=== PATIENT | male | born 1985 | race American Indian/Alaskan Native ===

== ENCOUNTER 2017-05-15 20:49 | Emergency (ER) | payer OTHER ==
[2017-05-15 20:49] VITALS: BMI 24.4
[2017-05-15 21:09] VITALS: BP 128/63; PULSE 71; RESP 18; TEMP 97.8; O2SAT 100
[2017-05-15] MEDS ORDERED: Alum-Mag Hydrox-Simethicone Susp (30 mL) PO STA (21:18)
[2017-05-15] MEDS ORDERED: Sodium Chloride 0.9% 1,000 ML IV STA (21:18)
--- NOTE | 2017-05-15 21:25 | ED PDOC ---
HPI: Abdomen Time Seen by Provider: 05/15/17 21:09 Chief Complaint (Nursing): GI Problem Chief Complaint (Provider): Epigastric and RUQ Pain History Per: Patient History/Exam Limitations: no limitations Outside of [place] travel?: No Current Symptoms Are (Timing): Still Present Location Of Pain/Discomfort: RUQ, Epigastric Quality Of Discomfort: "Pain" Associated Symptoms: Vomiting Additional Complaint(s): Chapincito Tang, a 31 year old male, with a past medical history of gastritis presents to the ED complaining of epigastric and right upper quadrant pain he has been experiencing for a few hours. The patient also states that he has had 7 episodes of vomiting within those few hours. He states that he has been taking proton pump inhibitors. Past Medical History Reviewed: Historical Data, Nursing Documentation, Vital Signs Vital Signs: Last Vital Signs Temp 97.8 F 05/15/17 21:07 Pulse 71 05/15/17 21:07 Resp 18 05/15/17 21:07 BP 128/63 05/15/17 21:07 Pulse Ox 100 05/15/17 21:29 - Medical History PMH: Arthritis, Back Problems (Spinal Arthritis), Gastritis - Surgical History Surgical History: No Surg Hx - Family History Family History: States: Unknown Family Hx - Immunization History Hx Tetanus Toxoid Vaccination: No Hx Influenza Vaccination: No Hx Pneumococcal Vaccination: No - Home Medications Home Medications: Ambulatory Orders Medication Instructions Recorded Pantoprazole Sodium [Protonix] 40 mg PO DAILY #30 ect 01/13/15 Famotidine [Pepcid] 20 mg PO BID #60 tab 03/23/17 Famotidine [Pepcid] 20 mg PO BID #28 tab 05/15/17 - Allergies Allergies/Adverse Reactions: Allergies Allergy/AdvReac Type Severity Reaction Status Date / Time No Known Allergies Allergy Verified 03/23/17 16:23 Review of Systems Gastrointestinal: Positive for: Vomiting (x7 episodes), Abdominal Pain ( Epigastric and right upper quadrant pain) Physical Exam - Reviewed Nursing Documentation Reviewed: Yes Vital Signs Reviewed: Yes - Physical Exam Appears: Positive for: Non-toxic, No Acute Distress Head Exam: Positive for: ATRAUMATIC, NORMAL INSPECTION, NORMOCEPHALIC Skin: Positive for: Normal Color, Warm, Dry. Negative for: Rash Eye Exam: Positive for: Normal appearance, EOMI, PERRL. Negative for: Nystagmus ENT: Positive for: Normal ENT Inspection. Negative for: Nasal Congestion, Pharyngeal Erythema Neck: Positive for: Normal, Painless ROM, Supple Cardiovascular/Chest: Positive for: Regular Rate, Rhythm, Chest Non Tender. Negative for: Tachycardia Respiratory: Positive for: Normal Breath Sounds. Negative for: Rales, Rhonchi, Wheezing, Respiratory Distress Gastrointestinal/Abdominal: Positive for: Normal Exam (Epigastric and Right upper quadrant pain.), Bowel Sounds, Soft. Negative for: Guarding, Rebound Neurologic/Psych: Positive for: Alert, Oriented, Gait - Laboratory Results Result Diagrams: 05/15/17 21:26 05/15/17 21:38 - ECG O2 Sat by Pulse Oximetry: 100 Medical Decision Making Medical Decision Makin Initial Impression: 31 year old male presenting with epigastric and right upper quadrant pain Initial Plan: * CMP * Lipase * CBC * Pepcid 20mg IV * NS 1000mls IV 1000mls/hr * Maalox 30ml PO * US Abd Limited * Reevaluation Labs normal. US normal. Scribe Attestation Documented by Raquel Higginbotham acting as a scribe for Kezia Trujillo PA-C. Scribe Attestation All medical record entries made by the Scribe were at my direction and personally dictated by me. I have reviewed the chart and agree that the record accurately reflects my personal performance of the history, physical exam, medical decision making, and the department course for this patient. I have also personally directed, reviewed, and agree with the discharge instructions and disposition. Disposition - Clinical Impression Clinical Impression: Gastritis - Patient ED Disposition Is Patient to be Admitted: No Counseled Patient/Family Regarding: Diagnosis, Need For Followup, Rx Given - Disposition Disposition: Routine/Home Disposition Time: 23:15 Condition: GOOD Prescriptions: Famotidine [Pepcid] 20 mg PO BID #28 tab Instructions: Gastritis (ED) Forms: [employer] (Guinean)
[2017-05-15] MEDS ORDERED: Alum-Mag Hydrox-Simethicone Susp (30 mL) ONE (21:33)
[2017-05-15 21:38] LABS: BASO # 0.1 K/uL (0.0-0.2); BASO % 0.5 % (0.0-2.0); EOS % 0.1 % (0.0-4.0); HEMATOCRIT 47.9 % (35.0-51.0); LYMPH # 0.5 K/uL (1.0-4.3); LYMPH % 4.4 % (20.0-40.0); MEAN CELL VOLUME 86.1 fl (80.0-94.0); MEAN CORPUSCULAR HEMOGLOBIN 28.4 pg (27.0-31.0); MEAN PLATELET VOLUME 8.3 fl (7.2-11.7); MONO # 0.3 K/uL (0.0-0.8); MONO % 2.8 % (0.0-10.0); NEUT % 92.2 % (50.0-75.0); PLATELET COUNT 270 K/uL (130-400); RED CELL DISTRIBUTION WIDTH 13.7 % (11.5-14.5); WHITE BLOOD COUNT 10.9 K/uL (4.8-10.8)
[2017-05-15 21:48] LABS: ALB/GLOB RATIO 1.4 (1.0-2.1); ALKALINE PHOSPHATASE 54 U/L (38-126); ALT/SGPT 44 U/L (21-72); AST/SGOT 30 U/L (17-59); BILIRUBIN,TOTAL 1.1 mg/dl (0.2-1.3); BLOOD UREA NITROGEN 27 mg/dl (9-20); CALCIUM 10.9 mg/dL (8.4-10.2); CARBON DIOXIDE 25 mmol/L (22-30); CHLORIDE 104 mmol/L (98-107); GFR AFRICAN-AMERICAN > 60; GLUCOSE,RANDOM 128 mg/dL (75-110); LIPASE 44 U/L (23-300); SODIUM 143 mmol/l (132-148); TOTAL PROTEIN 9.1 G/DL (6.3-8.2)
[2017-05-15 22:49] LABS: BASOPHIL 1 % (0-2); NEUTROPHIL 90 % (42-75); TOTAL CELLS COUNTED 100
--- NOTE | 2017-05-15 23:02 | US ---
EXAM: US Abdomen Limited, Right Upper Quadrant CLINICAL HISTORY: 31 years old, male; Pain; Abdominal pain; Epigastric; Additional info: Ruq pain TECHNIQUE: Real-time ultrasound of the right upper quadrant with image documentation. COMPARISON: No relevant prior studies available. FINDINGS: Liver: Unremarkable in echogenicity and size measuring 16 cm in longitudinal dimension. No intrahepatic bile duct dilation. Gallbladder: No acute findings. No gallstones. Common bile duct: No stones. No dilation, measuring 3 mm. Pancreas: Visualization of the pancreas is limited by overlying bowel gas. Right kidney: No acute findings. No obstructing stones. No solid mass. No hydronephrosis. IMPRESSION: Unremarkable sonographic evaluation of the right upper quadrant, as detailed above. Limited evaluation of the pancreas, secondary to overlying bowel gas.
== END 2017-05-16 00:03 | disposition home or self-care (01) ==
LOC: H.ER 20:49
DX: K29.70 Gastritis, unspecified, without bleeding (principal)
CPT/HCPCS: 76705; 80053; 83690; 85025; 96374; 96375; 99284; J2270; J2405; J7040

== ENCOUNTER 2017-07-09 00:33 | Inpatient (IN) | payer OTHER ==
[2017-07-09 00:34] VITALS: BMI 24.4
[2017-07-09] MEDS ORDERED: Sodium Chloride 0.9% 1,000 ML IV STA ×2 (01:01→01:36)
--- NOTE | 2017-07-09 01:04 | ED PDOC ---
HPI: Abdomen Time Seen by Provider: 07/09/17 00:43 Chief Complaint (Nursing): Abdominal Pain Chief Complaint (Provider): abdominal pain History Per: Patient History/Exam Limitations: no limitations Onset/Duration Of Symptoms: Hrs Current Symptoms Are (Timing): Still Present Location Of Pain/Discomfort: Epigastric Quality Of Discomfort: Burning, "Pain" Associated Symptoms: Nausea, Vomiting Additional History Per: Patient Additional Complaint(s): 31 y/o male history of gastritis presents with epigastric abdominal pain x 12 hours. Associated nausea/vomiting. Patient being followed by a [employer], states he takes Pantoprazole but ran out 2 days ago. Denies fever, chest pain, shortness of breath, palpitations, changes in bowel movements, urinary symptoms. Past Medical History Reviewed: Historical Data, Nursing Documentation, Vital Signs Vital Signs: Last Vital Signs Temp 97.8 F 07/09/17 18:44 Pulse 89 07/09/17 18:44 Resp 18 07/09/17 18:44 BP 124/73 07/09/17 18:44 Pulse Ox 97 07/09/17 18:44 - Medical History PMH: Arthritis, Back Problems (Spinal Arthritis), Gastritis - Surgical History Surgical History: No Surg Hx - Family History Family History: States: Unknown Family Hx - Social History Current smoker - smoking cessation education provided: No Alcohol: None Drugs: Cannabis (daily) - Immunization History Hx Tetanus Toxoid Vaccination: No Hx Influenza Vaccination: No Hx Pneumococcal Vaccination: No - Home Medications Home Medications: Ambulatory Orders Medication Instructions Recorded Pantoprazole Sodium [Protonix] 40 mg PO DAILY #30 ect 01/13/15 Ondansetron ODT [Zofran ODT] 4 mg PO DAILY 07/09/17 - Allergies Allergies/Adverse Reactions: Allergies Allergy/AdvReac Type Severity Reaction Status Date / Time No Known Allergies Allergy Verified 03/23/17 16:23 Review of Systems ROS Statement: Except As Marked, All Systems Reviewed And Found Negative Gastrointestinal: Positive for: Nausea, Vomiting, Abdominal Pain Physical Exam - Reviewed Nursing Documentation Reviewed: Yes Vital Signs Reviewed: Yes - Physical Exam Appears: Positive for: Well, Non-toxic, No Acute Distress Head Exam: Positive for: ATRAUMATIC, NORMAL INSPECTION, NORMOCEPHALIC Skin: Positive for: Normal Color Eye Exam: Positive for: Normal appearance ENT: Positive for: Normal ENT Inspection Cardiovascular/Chest: Positive for: Regular Rate, Rhythm Respiratory: Positive for: Normal Breath Sounds Gastrointestinal/Abdominal: Positive for: Bowel Sounds, Soft, Tenderness ( epigastric) Back: Positive for: Normal Inspection Extremity: Positive for: Normal ROM Neurologic/Psych: Positive for: Alert, Oriented - Laboratory Results Result Diagrams: 07/09/17 01:22 07/09/17 01:22 - ECG O2 Sat by Pulse Oximetry: 100 - Progress ED Course And Treament: labs, IV fluids, IV pepcid, IV zofran On re-eval, patient still with pain; GI cocktail ordered On re-eval, patient still with pain, IV reglan ordered On re-eval, patient still with pain, IV phenergan, IV benadryl, IV toradol ordered 4:40 Patient notes little to no improvement of pain. Patient advised will need to order CT abd/pelvis to rule out acute process. Disposition - Clinical Impression Clinical Impression: Abdominal pain - Patient ED Disposition Is Patient to be Admitted: Transfer of Care - Disposition Disposition: Transfer of Care Disposition Time: 06:00 Condition: FAIR Patient Signed Over To: Rod Tellez Handoff Comments: pending CT
[2017-07-09 01:25] LABS: BASO % 0.3 % (0.0-2.0); EOS % 0.1 % (0.0-4.0); HEMATOCRIT 44.6 % (35.0-51.0); LYMPH # 0.4 K/uL (1.0-4.3); LYMPH % 5.2 % (20.0-40.0); MEAN CELL VOLUME 86.8 fl (80.0-94.0); MEAN CORPUSCULAR HEMOGLOBIN 28.6 pg (27.0-31.0); MEAN PLATELET VOLUME 8.2 fl (7.2-11.7); MONO # 0.2 K/uL (0.0-0.8); NEUT # 7.6 K/uL (1.8-7.0); NEUT % 92.4 % (50.0-75.0); PLATELET COUNT 245 K/uL (130-400); RED CELL DISTRIBUTION WIDTH 14.1 % (11.5-14.5); WHITE BLOOD COUNT 8.3 K/uL (4.8-10.8)
[2017-07-09 01:33] LABS: ALB/GLOB RATIO 1.5 (1.0-2.1); ALKALINE PHOSPHATASE 44 U/L (38-126); ALT/SGPT 43 U/L (21-72); AST/SGOT 27 U/L (17-59); BLOOD UREA NITROGEN 26 mg/dl (9-20); CALCIUM 10.7 mg/dL (8.4-10.2); CARBON DIOXIDE 23 mmol/L (22-30); CHLORIDE 105 mmol/L (98-107); GFR AFRICAN-AMERICAN > 60; GLUCOSE,RANDOM 126 mg/dL (75-110); LIPASE 49 U/L (23-300); POTASSIUM 4.4 MMOL/L (3.6-5.0); SODIUM 144 mmol/l (132-148); TOTAL PROTEIN 8.4 G/DL (6.3-8.2)
[2017-07-09] MEDS ORDERED: Atrop/Hyos/Scop/PhenoB Elixir PO ONE (02:03)
[2017-07-09] MEDS ORDERED: Alum-Mag Hydrox-Simethicone Susp (30 mL) PO ONE (02:03)
[2017-07-09] MEDS ORDERED: Belladonna-Phenobarbital PO STA (02:05)
[2017-07-09 02:52] LABS: NEUTROPHIL 94 % (42-75); PLATELET CLUMPS PRESENT; TOTAL CELLS COUNTED 100
[2017-07-09] MEDS ORDERED: DiphenhydrAMINE 50 mg/ml Inj IVP STA (03:32)
[2017-07-09] MEDS ORDERED: DiphenhydrAMINE 50 mg/ml Inj ONE (03:36)
[2017-07-09] MEDS ORDERED: Iohexol 240 (50 ml) PO ONE (04:39)
[2017-07-09] MEDS ORDERED: Iohexol 240 (50 ml) ONE (04:40)
--- NOTE | 2017-07-09 05:48 | ED PDOC ---
- Laboratory Results Result Diagrams: 07/09/17 01:22 07/09/17 01:22 - ECG O2 Sat by Pulse Oximetry: 100 Medical Decision Making Medical Decision Makin Receiving sign out: Patient signed out to me by JUANI Vines pending CT 0700 Patient signed out to Dr. Partida at pending CT. Scribe Attestation: Documented by Alma Red acting as a scribe for Rod Tellez MD. Scribe Attestation: All medical record entries made by the Scribe were at my direction and personally dictated by me. I have reviewed the chart and agree that the record accurately reflects my personal performance of the history, physical exam, medical decision making, and the department course for this patient. I have also personally directed, reviewed, and agree with the discharge instructions and disposition. Disposition Counseled Patient/Family Regarding: Studies Performed, Diagnosis - Clinical Impression Clinical Impression: Abdominal pain - POA Present On Arrival: None - Disposition Disposition: Transfer of Care Disposition Time: 07:00 Condition: FAIR Forms: [employer] (Yoruba) Patient Signed Over To: Michael Partida (at 0700) Handoff Comments: Pending CT
[2017-07-09] MEDS ORDERED: Iohexol 300 100 ML IJ ONE (06:35)
[2017-07-09] MEDS ORDERED: Sodium Chloride 0.9% 50 ML IV ONE (06:35)
--- NOTE | 2017-07-09 07:38 | ED PDOC ---
- Laboratory Results Result Diagrams: 07/09/17 01:22 07/09/17 01:22 Interpretation Of Abn Labs: 26 bun - ECG O2 Sat by Pulse Oximetry: 100 (RA) Pulse Ox Interpretation: Normal - CT Scan/US ct Other Rad Studies (CT/US): Read By Radiologist Other Rad Interpretation: Jejunal-Jejunal intusseception 5cm LUQ - Progress ED Course And Treament: 805: Feeling slightly better. AAOx3. Surgery paged. 820: Spoke with surgery resident. Will admit under surgery Dr. Greene service. Pt. stable. No additional tx at this time. Medical Decision Making Medical Decision Makin:00 Patient signed over to me, Michael Partida MD from Rod Tellez MD pending CT. Scribe Attestation: Documented by Bonnie Llanos, acting as a scribe for Michael Partida MD. Provider Scribe Attestation: All medical record entries made by the Scribe were at my direction and personally dictated by me. I have reviewed the chart and agree that the record accurately reflects my personal performance of the history, physical exam, medical decision making, and the department course for this patient. I have also personally directed, reviewed, and agree with the discharge instructions and disposition. Disposition - Clinical Impression Clinical Impression: Intussusception - POA Present On Arrival: None - Disposition Disposition: Admitted as In-Patient Disposition Time: 08:21 Condition: FAIR
--- NOTE | 2017-07-09 07:50 | CT ---
EXAM: CT Abdomen and Pelvis With Intravenous Contrast EXAM DATE/TIME: 07/09/2017 4:39 AM CLINICAL HISTORY: 31 years old, male; Pain and signs and symptoms; Vomiting; Abdominal pain; Localized; Upper; Additional info: Upper abdominal pain, vomiting TECHNIQUE: Axial computed tomography images of the abdomen and pelvis with intravenous contrast. All CT scans at this facility use one or more dose reduction techniques, viz.: automated exposure control; ma/kV adjustment per patient size (including targeted exams where dose is matched to indication; i.e. head); or iterative reconstruction technique. Coronal and sagittal reformatted images were created and reviewed. CONTRAST: 95 mL of [id number] administered intravenously. COMPARISON: No relevant prior studies available. FINDINGS: Lower thorax: No acute findings. ABDOMEN: Liver: Unremarkable. No mass. Gallbladder and bile ducts: Unremarkable. No calcified stones. No ductal dilation. Pancreas: Unremarkable. No mass. No ductal dilation. Spleen: Unremarkable. No splenomegaly. Adrenals: Unremarkable. No mass. Kidneys and ureters: Unremarkable. No solid mass. No hydronephrosis. Stomach and bowel: Telescoping of a 5 cm segments of jejunum in the left upper abdomen (images 25-27 series 2, 49-54 series 3, coronal 41-46, sagittal 102-120). Upper limits of some segments of jejunum in the region, best of normal caliber. Appendix: Normal. PELVIS: Bladder: Unremarkable. No mass. Reproductive: Unremarkable as visualized. ABDOMEN and PELVIS: Intraperitoneal space: Small amount of free fluid in the dependent pelvis. No free air. Bones/joints: No acute fracture. Soft tissues: Unremarkable. Vasculature: Unremarkable. No abdominal aortic aneurysm. Lymph nodes: No enlarged lymph nodes. IMPRESSION: Jejunal-jejunal intussusception in left upper abdomen, approximately 5 cm in length. No sign of obstruction at this time.
--- NOTE | 2017-07-09 08:45 | CP.PCM.HP ---
History of Present Illness - History of Present Illness History of Present Illness: 31M w/ PMHx of gastritis presented to ED w/ complaints of abdominal pain. Patient states pain began yesterday around 8PM while he was eating dinner. At this time patient rated pain as a 9/10. Reports having multiple bouts of bilious emesis (x7). States he has not experienced this type of pain before. Currently patient rates pain as 7/10, patient reports nausea. Last BM was yesterday night, patient reports passing flatus today. Denies fever but reports chills. PMHx: gastritis PSurgHx: none Allergies: NKDA Soc Hx: Occasional marijuana use. Present on Admission - Present on Admission Any Indicators Present on Admission: No Review of Systems - Review of Systems Review of Systems: 12 pt ROS carried out, unremarkable, except as stated in HPI Past Patient History - Past Social History Alcohol: None Drugs: Cannabis (daily) - MUSCULOSKELETAL/RHEUMATOLOGICAL Hx Musculoskeletal Disorders: Yes - GASTROINTESTINAL Hx Gastritis: Yes - PSYCHIATRIC Hx Substance Use: Yes - SURGICAL HISTORY Hx Surgeries: No - ANESTHESIA Hx Anesthesia: No Meds Allergies/Adverse Reactions: Allergies Allergy/AdvReac Type Severity Reaction Status Date / Time No Known Allergies Allergy Verified 03/23/17 16:23 Physical Exam - Constitutional Appears: No Acute Distress - Head Exam Head Exam: NORMOCEPHALIC - Eye Exam Eye Exam: Normal appearance - ENT Exam ENT Exam: Mucous Membranes Moist - Respiratory Exam Respiratory Exam: NORMAL BREATHING PATTERN - Cardiovascular Exam Cardiovascular Exam: +S1, +S2 - GI/Abdominal Exam GI & Abdominal Exam: Guarding, Tenderness. absent: Distended, Firm, Hernia - Neurological Exam Neurological exam: Alert, Oriented x3 - Psychiatric Exam Psychiatric exam: Normal Mood - Skin Skin Exam: Dry, Intact, Normal Color, Warm Results - Vital Signs Recent Vital Signs: Last Vital Signs Temp 99.8 F H 07/09/17 08:19 Pulse 81 07/09/17 08:19 Resp 18 07/09/17 08:19 BP 130/72 07/09/17 08:19 Pulse Ox 100 07/09/17 08:21 - Labs Result Diagrams: 07/09/17 01:22 07/09/17 01:22 Labs: Laboratory Results - last 24 hr 07/09/17 07/09/17 01:22 01:22 WBC 8.3 RBC 5.13 Hgb 14.7 Hct 44.6 MCV 86.8 MCH 28.6 MCHC 33.0 RDW 14.1 Plt Count 245 MPV 8.2 Neut % (Auto) 92.4 H Lymph % (Auto) 5.2 L [place] % (Auto) 2.0 Eos % (Auto) 0.1 Baso % (Auto) 0.3 Neut # 7.6 H Lymph # 0.4 L [place] # 0.2 Eos # 0.0 Baso # 0.0 Neutrophils % (Manual) 94 H Lymphocytes % (Manual) 5 L Monocytes % (Manual) 1 Platelet Estimate Normal Plt Clumps, EDTA Present Anisocytosis (manual) Slight Sodium 144 Potassium 4.4 Chloride 105 Carbon Dioxide 23 Anion Gap 20 BUN 26 H Creatinine 1.0 Est GFR ( Amer) > 60 Est GFR (Non-Af Amer) > 60 Random Glucose 126 H Calcium 10.7 H Total Bilirubin 1.0 AST 27 ALT 43 Alkaline Phosphatase 44 Total Protein 8.4 H Albumin 5.1 H Globulin 3.3 Albumin/Globulin Ratio 1.5 Lipase 49 Assessment & Plan - Assessment and Plan (Free Text) Assessment: 31M w/ intussusception -OR this afternoon -Consent in chart -Type & Screen -NPO -IVF -Anti-emetics/Analgesics -DVT/GI ppx -D/w Dr. Jc Garcia PGY-2
[2017-07-09] MEDS ORDERED: HYDROmorphone 0.5 mg/0.5 ml ISec IVP PRN ×3 (09:02→17:45)
[2017-07-09] MEDS: Lactated Ringer's 1,000 ML IV SCH ×2 (09:47→19:19)
[2017-07-09 10:33] LABS: PARTIAL THROMBOPLASTIN TIME 27.5 Seconds (25.6-37.1)
[2017-07-09] MEDS ORDERED: Propofol 10 mg/ml Inj (20 ML) ONE ×2 (11:18→14:05)
[2017-07-09] MEDS ORDERED: Succinylcholine 200 mg/10 ml Inj IV ONE (11:18)
[2017-07-09] MEDS ORDERED: ePHEDrine 50 mg/ml Inj ONE (11:18)
[2017-07-09] MEDS ORDERED: Rocuronium 10 mg/ml (5 ml) ONE (11:18)
[2017-07-09] MEDS ORDERED: Lidocaine 4% (Laryng-O-Jet) Kit MM ONE (11:18)
[2017-07-09] MEDS ORDERED: Bupivacaine 0.5% Inj(30mL) ONE (12:31)
[2017-07-09] MEDS ORDERED: Lidocaine 1% Inj (20ml) ONE (12:31)
[2017-07-09] MEDS ORDERED: Midazolam 2 MG/2 ML VIAL ONE (12:57)
[2017-07-09] MEDS ORDERED: Lactated Ringer's 1,000 ML IV ONE ×2 (13:04→14:30)
[2017-07-09] MEDS ORDERED: cefTRIAXone (Rocephin) 1 gm Inj ONE (13:15)
[2017-07-09] MEDS ORDERED: Dexamethasone 4 mg/1 ml ONE (13:26)
[2017-07-09] MEDS ORDERED: Neostigmine Methylsulfate 3mg/3ml Syringe IV ONE (14:01)
--- NOTE | 2017-07-09 14:42 | PCM.SURG1 ---
Surgeon's Initial Post Op Note - Surgeon's Notes Surgeon: Dr. Greene [employer] Instructor: Dr. Hooper PGY-3, Dr. Garcia PGY-2 Type of Anesthesia: General Endo Pre-Operative Diagnosis: intussusception Operative Findings: see operative report Post-Operative Diagnosis: see operative report Operation Performed: diagnostic laparoscopy converted to exploratory laparotomy. appendectomy. insertion of rendon catheter Specimen/Specimens Removed: appendix Estimated Blood Loss: EBL {In ML}: 15 Blood Products Given: N/A Drains Used: No Drains Post-Op Condition: Good Date of Surgery/Procedure: 07/09/17 Time of Surgery/Procedure: 14:43
[2017-07-09] MEDS ORDERED: Lactated Ringer's 1,000 ML IV SCH (14:45)
[2017-07-09] MEDS: HYDROmorphone 0.5 mg/0.5 ml ISec IVP PRN ×4 (15:00→15:48)
[2017-07-09] MEDS ORDERED: HYDROmorphone 0.5 mg/0.5 ml ISec IVP SCH (16:00)
[2017-07-10] MEDS: Lactated Ringer's 1,000 ML IV SCH (01:41)
[2017-07-10 06:31] LABS: BASO % 0.1 % (0.0-2.0); HEMATOCRIT 37.8 % (35.0-51.0); LYMPH # 1.4 K/uL (1.0-4.3); LYMPH % 10.1 % (20.0-40.0); MEAN CORPUSCULAR HEMOGLOBIN 28.5 pg (27.0-31.0); MEAN CORPUSCULAR HGB CONC 32.8 g/dL (33.0-37.0); MEAN PLATELET VOLUME 8.1 fl (7.2-11.7); MONO # 1.1 K/uL (0.0-0.8); MONO % 8.2 % (0.0-10.0); NEUT # 11.4 K/uL (1.8-7.0); NEUT % 81.6 % (50.0-75.0); RED CELL DISTRIBUTION WIDTH 14.1 % (11.5-14.5)
[2017-07-10 06:35] LABS: ALB/GLOB RATIO 1.4 (1.0-2.1); ALKALINE PHOSPHATASE 31 U/L (38-126); ALT/SGPT 34 U/L (21-72); AST/SGOT 26 U/L (17-59); BILIRUBIN,TOTAL 1.1 mg/dl (0.2-1.3); BLOOD UREA NITROGEN 21 mg/dl (9-20); CALCIUM 9.5 mg/dL (8.4-10.2); CARBON DIOXIDE 26 mmol/L (22-30); CHLORIDE 104 mmol/L (98-107); GFR AFRICAN-AMERICAN > 60; GLUCOSE,RANDOM 92 mg/dL (75-110); POTASSIUM 4.2 MMOL/L (3.6-5.0); SODIUM 140 mmol/l (132-148); TOTAL PROTEIN 6.3 G/DL (6.3-8.2)
[2017-07-10] MEDS: Enoxaparin 40 mg Syringe SC SCH (09:58)
--- NOTE | 2017-07-10 10:50 | CP.PCM.PN ---
Subjective - Date & Time of Evaluation Date of Evaluation: 07/10/17 Time of Evaluation: 10:00 - Subjective Subjective: Patient seen and examined this morning. Patient is in good spirits. Does not have any complaints. Denies passing flatus. Tolerating clear liquid diet. No n/ v. Objective - Vital Signs/Intake and Output Vital Signs (last 24 hours): Temp Pulse Resp BP Pulse Ox 98.4 F 82 20 110/64 97 07/10/17 07:23 07/10/17 07:23 07/10/17 07:23 07/10/17 07:23 07/10/17 07:23 - Medications Medications: Current Medications Acetaminophen (Tylenol 325mg Tab) 650 mg PO Q6 PRN PRN Reason: Fever >100.4 F Enoxaparin Sodium (Lovenox) 40 mg SC DAILY [facility] PRN Reason: Protocol Last Admin: 07/10/17 09:58 Dose: 40 mg Hydromorphone HCl (Dilaudid) 0.5 mg IVP Q3 PRN PRN Reason: Pain, moderate (4-7) Hydromorphone HCl (Dilaudid) 1 mg IVP Q4 PRN PRN Reason: Pain, severe (8-10) Last Admin: 07/10/17 06:35 Dose: 1 mg Lactated Ringer's (Lactated Ringer's) 1,000 mls @ 125 mls/hr IV .Q8H [facility] Last Admin: 07/10/17 01:41 Dose: 125 mls/hr Lactated Ringer's (Lactated Ringer's) 1,000 mls @ 125 mls/hr IV .Q8H [facility] Last Admin: 07/09/17 23:06 Dose: Not Given Ondansetron HCl (Zofran Inj) 4 mg IVP Q4 PRN PRN Reason: Nausea/Vomiting Pantoprazole Sodium (Protonix Inj) 40 mg IVP DAILY [facility] Last Admin: 07/10/17 09:58 Dose: 40 mg - Labs Labs: 07/10/17 05:30 07/10/17 05:30 PT 13.9 Seconds (9.8-13.1) H 07/09/17 09:36 INR 1.2 (0.9-1.2) 07/09/17 09:36 APTT 27.5 Seconds (25.6-37.1) 07/09/17 09:36 - Constitutional Appears: No Acute Distress - Head Exam Head Exam: NORMOCEPHALIC - Eye Exam Eye Exam: Normal appearance - ENT Exam ENT Exam: Mucous Membranes Moist - Neck Exam Neck Exam: Normal Inspection - Respiratory Exam Respiratory Exam: NORMAL BREATHING PATTERN - Cardiovascular Exam Cardiovascular Exam: +S1, +S2 - GI/Abdominal Exam GI & Abdominal Exam: Soft, Tenderness. absent: Distended, Firm, Guarding, Rigid - Neurological Exam Neurological Exam: Alert, Awake, Oriented x3 - Psychiatric Exam Psychiatric exam: Normal Mood - Skin Skin Exam: Intact, Normal Color, Warm Assessment and Plan - Assessment and Plan (Free Text) Assessment: 31M w/ intussusception s/p diagnostic laparoscopy converted to exploratory laparotomy POD #1 -Liquid diet -C/w analgesics prn -Encourage incentive spirometer use and ambulation -Monitor bowel function -DVT/GI ppx -D/w Dr. Jc Garcia PGY2
[2017-07-10] MEDS ORDERED: HYDROmorphone 0.5 mg/0.5 ml ISec IVP PRN (16:03)
[2017-07-11 06:03] LABS: BASO % 0.5 % (0.0-2.0); EOS % 0.4 % (0.0-4.0); HEMATOCRIT 38.6 % (35.0-51.0); LYMPH # 1.6 K/uL (1.0-4.3); LYMPH % 25.2 % (20.0-40.0); MEAN CELL VOLUME 86.7 fl (80.0-94.0); MEAN CORPUSCULAR HEMOGLOBIN 28.5 pg (27.0-31.0); MEAN CORPUSCULAR HGB CONC 32.9 g/dL (33.0-37.0); MEAN PLATELET VOLUME 8.1 fl (7.2-11.7); MONO # 0.8 K/uL (0.0-0.8); MONO % 12.1 % (0.0-10.0); NEUT % 61.8 % (50.0-75.0); RED CELL DISTRIBUTION WIDTH 13.7 % (11.5-14.5); WHITE BLOOD COUNT 6.5 K/uL (4.8-10.8)
[2017-07-11 06:11] LABS: ALB/GLOB RATIO 1.5 (1.0-2.1); ALKALINE PHOSPHATASE 34 U/L (38-126); ALT/SGPT 46 U/L (21-72); AST/SGOT 25 U/L (17-59); BLOOD UREA NITROGEN 17 mg/dl (9-20); CARBON DIOXIDE 26 mmol/L (22-30); CHLORIDE 103 mmol/L (98-107); GFR AFRICAN-AMERICAN > 60; GLUCOSE,RANDOM 89 mg/dL (75-110); SODIUM 139 mmol/l (132-148); TOTAL PROTEIN 6.4 G/DL (6.3-8.2)
[2017-07-11 07:26] VITALS: BP 125/77; PULSE 56; RESP 20; TEMP 97.8; O2SAT 99
--- NOTE | 2017-07-11 08:27 | CP.PCM.DIS ---
Provider - Provider Date of Admission: 07/09/17 08:19 Attending physician: Grey Greene MD Primary care physician: Dr. Greene Time Spent in preparation of Discharge (in minutes): 35 Diagnosis - Discharge Diagnosis (1) Intussusception of jejunum Status: Resolved Hospital Course - Lab Results Lab Results: Most Recent Lab Values WBC 6.5 K/uL (4.8-10.8) D 07/11/17 05:00 RBC 4.45 Mil/uL (4.40-5.90) 07/11/17 05:00 Hgb 12.7 g/dL (12.0-18.0) 07/11/17 05:00 Hct 38.6 % (35.0-51.0) 07/11/17 05:00 MCV 86.7 fl (80.0-94.0) 07/11/17 05:00 MCH 28.5 pg (27.0-31.0) 07/11/17 05:00 MCHC 32.9 g/dL (33.0-37.0) L 07/11/17 05:00 RDW 13.7 % (11.5-14.5) 07/11/17 05:00 Plt Count 197 K/uL (130-400) 07/11/17 05:00 MPV 8.1 fl (7.2-11.7) 07/11/17 05:00 Neut % (Auto) 61.8 % (50.0-75.0) 07/11/17 05:00 Lymph % (Auto) 25.2 % (20.0-40.0) 07/11/17 05:00 [place] % (Auto) 12.1 % (0.0-10.0) H 07/11/17 05:00 Eos % (Auto) 0.4 % (0.0-4.0) 07/11/17 05:00 Baso % (Auto) 0.5 % (0.0-2.0) 07/11/17 05:00 Neut # 4.0 K/uL (1.8-7.0) 07/11/17 05:00 Lymph # 1.6 K/uL (1.0-4.3) 07/11/17 05:00 [place] # 0.8 K/uL (0.0-0.8) 07/11/17 05:00 Eos # 0.0 K/uL (0.0-0.7) 07/11/17 05:00 Baso # 0.0 K/uL (0.0-0.2) 07/11/17 05:00 Neutrophils % (Manual) 94 % (42-75) H 07/09/17 01:22 Lymphocytes % (Manual) 5 % (20-50) L 07/09/17 01:22 Monocytes % (Manual) 1 % (0-10) 07/09/17 01:22 Platelet Estimate Normal (NORMAL) 07/09/17 01:22 Plt Clumps, EDTA Present 07/09/17 01:22 Anisocytosis (manual) Slight 07/09/17 01:22 PT 13.9 Seconds (9.8-13.1) H 07/09/17 09:36 INR 1.2 (0.9-1.2) 07/09/17 09:36 APTT 27.5 Seconds (25.6-37.1) 07/09/17 09:36 Sodium 139 mmol/l (132-148) 07/11/17 05:00 Potassium 4.0 MMOL/L (3.6-5.0) 07/11/17 05:00 Chloride 103 mmol/L (98-107) 07/11/17 05:00 Carbon Dioxide 26 mmol/L (22-30) 07/11/17 05:00 Anion Gap 14 (10-20) 07/11/17 05:00 BUN 17 mg/dl (9-20) 07/11/17 05:00 Creatinine 1.0 mg/dL (0.8-1.5) 07/11/17 05:00 Est GFR ( Amer) > 60 07/11/17 05:00 Est GFR (Non-Af Amer) > 60 07/11/17 05:00 Random Glucose 89 mg/dL (75-110) 07/11/17 05:00 Calcium 9.0 mg/dL (8.4-10.2) 07/11/17 05:00 Total Bilirubin 1.0 mg/dl (0.2-1.3) 07/11/17 05:00 AST 25 U/L (17-59) 07/11/17 05:00 ALT 46 U/L (21-72) 07/11/17 05:00 Alkaline Phosphatase 34 U/L (38-126) L 07/11/17 05:00 Total Protein 6.4 G/DL (6.3-8.2) 07/11/17 05:00 Albumin 3.8 g/dL (3.5-5.0) 07/11/17 05:00 Globulin 2.6 gm/dL (2.2-3.9) 07/11/17 05:00 Albumin/Globulin Ratio 1.5 (1.0-2.1) 07/11/17 05:00 Lipase 49 U/L (23-300) 07/09/17 01:22 Blood Type B POSITIVE 07/09/17 09:36 Blood Type Confirm B POSITIVE 07/09/17 10:35 Antibody Screen Negative 07/09/17 09:36 BBK History Checked No verified bt 07/09/17 09:36 - Hospital Course Hospital Course: Patient reported to ED on 07/09 with complaints of abdominal pain. On CT Abd & Pelvis there was evidence of intussusception. Patient was scheduled for diagnostic laparoscopy and possible exploratory laparotomy. Patient was converted to exploratory laparotomy. The entire bowel was examined, but no evidence of intussusception was present upon inspection of bowel. Patient tolerated surgery well. Patient is tolerating diet, passing flatus, and having bowel movements. Discharge Exam - Head Exam Head Exam: NORMOCEPHALIC - Eye Exam Eye Exam: Normal appearance - ENT Exam ENT Exam: Mucous Membranes Moist - Respiratory Exam Respiratory Exam: NORMAL BREATHING PATTERN - Cardiovascular Exam Cardiovascular Exam: +S1, +S2 - GI/Abdominal Exam GI & Abdominal Exam: Soft. absent: Distended, Firm, Guarding, Hernia - Neurological Exam Neurological exam: Alert, Oriented x3 - Psychiatric Exam Psychiatric exam: Normal Mood - Skin Skin Exam: Dry, Intact, Warm Discharge Plan - Discharge Medications Prescriptions: Acetaminophen [Tylenol 325mg tab] 975 mg PO Q8 PRN #30 tab PRN Reason: Pain, Moderate (4-7) - Follow Up Plan Condition: GOOD Disposition: HOME/ ROUTINE Additional Instructions: Follow up with Dr. Greene in 10 days Do not take baths for at least 2 weeks OK to shower Keep surgical incision site clean and dry.
[2017-07-11] MEDS ORDERED: Pantoprazole 40 mg EC Tab PO SCH (10:15)
[2017-07-11] MEDS: Enoxaparin 40 mg Syringe SC SCH (10:20)
--- NOTE | 2017-07-17 13:48 | OP ---
PROCEDURE DATE: 07/10/2017 SURGEON: Dr. Greene. FORMING YARDAGE CONTROL OPERATOR: Dr. Hooper and Dr. Garcia. FINDINGS: No intussusception that was readily identifiable. Gallbladder, colon, small bowel were normal except for the proximal third which was very edematous without mass, tumor or incident. DESCRIPTION OF PROCEDURE: In the operating room, the patient was identified by name, name of procedure, laterality, my nahed and the consent and his wristband. The patient had recently peed. Laparoscopy was done using a port in the umbilicus using a Veress needle. The abdomen was entered without incident. Laparoscopy was relatively normal. There was no obstruction or no mass that we could see. The patient was rapidly opened to laparotomy and the abdomen explored. The small bowel was run from the ligament of Treitz to the ileocecal valve 2 to 3 times without identifiable abnormality. The proximal small bowel was edematous, but without other issues. There was no adenopathy. The vasculature was fine. The abdomen was then otherwise explored. The liver, gallbladder, colon were relatively unremarkable. Cecum was mobilized. The tip of the appendix was normal. It was removed using a TA-30 on the base and the mesentery was serially clamped and tied. The abdomen was irrigated, dried. The omentum was placed in normal position and the abdomen was closed with running #1 PDS above and below and tied in the middle. Subcuticular stitches for the skin after subcutaneous closure. Wounds were injected with Marcaine. The patient was taken to the recovery room in good condition after the sponge and needle counts were declared correct. Grey Greene MD
== END 2017-07-11 15:10 | disposition home or self-care (01) | DRG 343 ==
LOC: H.ER 00:33 → H.ERHOLD 08:19 → H.MEDSURG1 10:01
PROVIDERS: ADMIT Surgery; ATTEND Surgery
PROC: 0DTJ0ZZ Resection of Appendix, Open Approach (ICD-10-PCS; principal; 2017-07-10)
DX: K56.1 Intussusception (principal); F12.90 Cannabis use, unspecified, uncomplicated; Z53.31 Laparoscopic surgical procedure converted to open procedure

== ENCOUNTER 2017-07-13 20:36 | Emergency (ER) | payer OTHER ==
[2017-07-13 20:36] VITALS: BMI 24.4
[2017-07-13 20:57] VITALS: PULSE 81; RESP 16
[2017-07-13] MEDS ORDERED: Sodium Chloride 0.9% 1,000 ML IV STA (21:09)
[2017-07-13] MEDS ORDERED: HYDROmorphone 0.5 mg/0.5 ml ISec ONE (21:39)
[2017-07-13 21:49] LABS: BASO % 0.3 % (0.0-2.0); EOS # 0.2 K/uL (0.0-0.7); EOS % 1.6 % (0.0-4.0); HEMATOCRIT 42.3 % (35.0-51.0); LYMPH # 0.9 K/uL (1.0-4.3); LYMPH % 8.3 % (20.0-40.0); MEAN CELL VOLUME 85.7 fl (80.0-94.0); MEAN CORPUSCULAR HEMOGLOBIN 28.2 pg (27.0-31.0); MEAN CORPUSCULAR HGB CONC 32.9 g/dL (33.0-37.0); MEAN PLATELET VOLUME 7.7 fl (7.2-11.7); MONO # 0.7 K/uL (0.0-0.8); NEUT # 9.2 K/uL (1.8-7.0); NEUT % 83.8 % (50.0-75.0); PLATELET COUNT 251 K/uL (130-400); RED CELL DISTRIBUTION WIDTH 13.8 % (11.5-14.5)
[2017-07-13] MEDS ORDERED: Sterile Water 10 ML IV ONE (21:52)
[2017-07-13 22:00] LABS: ALB/GLOB RATIO 1.4 (1.0-2.1); ALKALINE PHOSPHATASE 38 U/L (38-126); ALT/SGPT 41 U/L (21-72); AST/SGOT 22 U/L (17-59); BILIRUBIN,TOTAL 0.5 mg/dl (0.2-1.3); BLOOD UREA NITROGEN 21 mg/dl (9-20); CALCIUM 9.7 mg/dL (8.4-10.2); CARBON DIOXIDE 28 mmol/L (22-30); CHLORIDE 101 mmol/L (98-107); GFR AFRICAN-AMERICAN > 60; GLUCOSE,RANDOM 113 mg/dL (75-110); LIPASE 89 U/L (23-300); POTASSIUM 3.7 MMOL/L (3.6-5.0); SODIUM 140 mmol/l (132-148); TOTAL PROTEIN 7.5 G/DL (6.3-8.2)
--- NOTE | 2017-07-13 22:19 | ED PDOC ---
HPI: Abdomen Time Seen by Provider: 07/13/17 20:59 Chief Complaint (Nursing): Abdominal Pain Chief Complaint (Provider): Abdominal pain and vomiting History Per: Patient History/Exam Limitations: no limitations Onset/Duration Of Symptoms: Hrs (2 hours) Severity: Severe Location Of Pain/Discomfort: Epigastric Associated Symptoms: Vomiting (x2) Last Bowel Movement: Today Additional Complaint(s): Patient is a 31 y/o male with a past medical history of gastritis who presents to the ED complaining of severe epigastric pain that developed 2 hours prior to arrival and vomiting x2. Patient was recently admitted for surgery for intussusception and was discharged 4 days ago. He reports having normal bowel movements today and being able to pass gas. Patient notes he ate a [place] egg and cheese sandwich this morning and had a smoothie, but that he was eating rice and beans at onset of the pain. PCP: Grey Greene Past Medical History Reviewed: Historical Data, Nursing Documentation, Vital Signs Vital Signs: Last Vital Signs Temp 98.1 F 07/14/17 02:18 Pulse 81 07/14/17 02:18 Resp 16 07/14/17 02:18 BP 131/90 07/14/17 02:18 Pulse Ox 100 07/14/17 02:18 - Medical History PMH: Arthritis, Back Problems (Spinal Arthritis), Gastritis - Surgical History Other surgeries: intussusception surgery - Family History Family History: States: No Known Family Hx, Unknown Family Hx - Social History Current smoker - smoking cessation education provided: Yes (some days) Alcohol: None Drugs: Cannabis - Immunization History Hx Tetanus Toxoid Vaccination: No Hx Influenza Vaccination: No Hx Pneumococcal Vaccination: No - Home Medications Home Medications: Ambulatory Orders Medication Instructions Recorded Pantoprazole Sodium [Protonix] 40 mg PO DAILY #30 ect 01/13/15 Ondansetron ODT [Zofran ODT] 4 mg PO DAILY 07/09/17 Acetaminophen [Tylenol 325mg tab] 975 mg PO Q8 PRN #30 tab 07/11/17 Pantoprazole [Protonix Inj] 40 mg IVP DAILY vial 07/11/17 - Allergies Allergies/Adverse Reactions: Allergies Allergy/AdvReac Type Severity Reaction Status Date / Time No Known Allergies Allergy Verified 03/23/17 16:23 Review of Systems ROS Statement: Except As Marked, All Systems Reviewed And Found Negative Gastrointestinal: Positive for: Vomiting, Abdominal Pain (epigastric) Physical Exam - Reviewed Nursing Documentation Reviewed: Yes Vital Signs Reviewed: Yes - Physical Exam Appears: Positive for: No Acute Distress Head Exam: Positive for: ATRAUMATIC, NORMOCEPHALIC Skin: Positive for: Normal Color, Warm, Dry Eye Exam: Positive for: Normal appearance, EOMI, PERRL Neck: Positive for: Normal, Painless ROM, Supple Cardiovascular/Chest: Positive for: Regular Rate, Rhythm. Negative for: Murmur Respiratory: Positive for: Normal Breath Sounds. Negative for: Respiratory Distress Gastrointestinal/Abdominal: Positive for: Soft, Tenderness (epigastric tenderness, mild to palpation) Back: Positive for: Normal Inspection. Negative for: L CVA Tenderness, R CVA Tenderness, Vertebral Tenderness Extremity: Positive for: Normal ROM. Negative for: Pedal Edema, Deformity Neurologic/Psych: Positive for: Alert, Oriented (x3). Negative for: Motor/ Sensory Deficits Comments: Surgical site appears well healed, no drainage or erythema - Laboratory Results Result Diagrams: 07/13/17 21:35 07/13/17 21:35 - ECG O2 Sat by Pulse Oximetry: 99 (RA) Pulse Ox Interpretation: Normal Medical Decision Making Medical Decision Making: Time: 2107 Initial Impression: Gastritis vs post-surgical complication Initial Plan: --Labs --Obstructive Series X-Ray --Hydromorphone 05mg IVP --Sodium Chloride 0.9% IV 500 mls/hr --Pantoprazole 40 mg IVP --Metoclopramide 10 mg IVPB --Urinalysis --Reevaluation 0116 CT FINDINGS Lower thorax: <No significant pleural effusions.> ABDOMEN: Liver: Unremarkable. Gallbladder and bile ducts: Unremarkable. No calcified stones. No ductal dilation. Pancreas: Unremarkable. No ductal dilation. Spleen: Unremarkable. No splenomegaly. Adrenals: Unremarkable. Kidneys and ureters: Patchy areas of hypodensity are noted in both kidneys, suspicious for acute pyelonephritis. No hydronephrosis. Stomach and bowel: Oral contrast reaches the proximal small bowel. Evaluation of remainder of the bowel is limited due to lack of oral contrast opacification. No gross extravasation of oral contrast from the opacified portions of the proximal small bowel. Underlying tiny bowel perforation not excluded. Appendix: No findings to suggest acute appendicitis. PELVIS: Bladder: Unremarkable. Reproductive: Unremarkable as visualized. ABDOMEN and PELVIS: Intraperitoneal space: Moderate amount of pneumoperitoneum. Small amount of free fluid in the pelvis. Bones/joints: No acute fracture. No dislocation. Soft tissues: Unremarkable. Vasculature: Unremarkable. No abdominal aortic aneurysm. Lymph nodes: Unremarkable. No enlarged lymph nodes. IMPRESSION: 1. Moderate amount of pneumoperitoneum. This could be due to postsurgical status versus other etiologies including viscus perforation. 2. Oral contrast reaches the proximal small bowel. Evaluation of remainder of the bowel is limited due to lack of oral contrast opacification. No gross extravasation of oral contrast from the opacified portions of the proximal small bowel. Underlying tiny bowel perforation not excluded. 3. Patchy areas of hypodensity are noted in both kidneys, suspicious for acute pyelonephritis. 4. Small amount of free fluid in the pelvis. 0205 Dr. Hinson is covering for Dr. Patrick (surgeon). States patient is stable for discharge if he is tolerating PO and passing gas. Notes that cause of pain was likely diet related. Advised patient to have less fatty/heavy meals. Patient will follow up with Dr. Greene in the morning. Provider explained CT findings to patient. Upon re-evaluation, patient states that he is feeling significantly better. Provider notes minimal tenderness upon re-examination. Patient is tolerating PO and passing gas and therefore is stable for discharge home. Return precautions given. Scribe Attestation: Documented by Isaías Menezes and Alma Red, acting as a scribe for Keyon Almonte MD Provider Scribe Attestation: All medical record entries made by the Scribe were at my direction and personally dictated by me. I have reviewed the chart and agree that the record accurately reflects my personal performance of the history, physical exam, medical decision making, and the department course for this patient. I have also personally directed, reviewed, and agree with the discharge instructions and disposition. Disposition - Clinical Impression Clinical Impression: Abdominal pain - Disposition Referrals: Grey Greene MD [Staff Provider] - Disposition: Routine/Home Disposition Time: 02:05 Condition: STABLE Additional Instructions: Please call Dr. Greene's office tomorrow for urgent followup. Please take smaller, less heavy meals. Instructions: Acute Abdominal Pain (ED) Forms: [facility] (Turkish), [facility] ED School/Work Excuse
[2017-07-13] MEDS ORDERED: Iohexol 240 (50 ml) PO ONE (22:43)
[2017-07-13] MEDS ORDERED: Iohexol 240 (50 ml) ONE (22:58)
[2017-07-13 23:24] LABS: BASOPHIL 1 % (0-2); EOSINOPHIL 2 % (0-7); NEUTROPHIL 78 % (42-75); REACTIVE LYMPHOCYTES 4 % (0-0); TOTAL CELLS COUNTED 100
[2017-07-13 23:26] LABS: LARGE PLATELETS PRESENT
[2017-07-14 00:58] LABS: RBC URINE 3 /hpf (0-3); URINE BILIRUBIN NEGATIVE (NEGATIVE); URINE BLOOD NEGATIVE (NEGATIVE); URINE COLOR YELLOW (YELLOW); URINE GLUCOSE (UA) NEG (Normal); URINE KETONE TRACE mg/dL (NEGATIVE); URINE LEUKOCYTE ESTERASE NEG Leu/uL (Negative); URINE PROTEIN NEGATIVE (NEGATIVE); URINE UROBILINOGEN 0.2-1.0 mg/dL (0.2-1.0); WBC URINE 1 /hpf (0-5)
[2017-07-14 02:18] VITALS: BP 131/90; TEMP 98.1
[2017-07-14 03:56] VITALS: O2SAT 99
--- NOTE | 2017-07-14 09:59 | CT ---
PROCEDURE: CT Abdomen and Pelvis with contrast HISTORY: s/p ex lap of intusseception c/o of epig pain, vom COMPARISON: Abdomen and pelvis CT with contrast 07/09/2017. TECHNIQUE: Contrast dose: Omnipaque 300, 90 cc. Radiation dose: Total exam DLP = 543.28 mGy-cm. This CT exam was performed using one or more of the following dose reduction techniques: Automated exposure control, adjustment of the mA and/or kV according to patient size, and/or use of iterative reconstruction technique. FINDINGS: LOWER THORAX: Unremarkable. LIVER: Stable appearing. No gross lesion or ductal dilatation. GALLBLADDER AND BILE DUCTS: Distended but otherwise unremarkable. PANCREAS: Grossly nonfocal peer SPLEEN: Stable and unremarkable. ADRENALS: Unremarkable. No mass. KIDNEYS AND URETERS: Borderline pyelonephritis pattern is question based on inhomogeneous enhancement pattern the cortex which is a subtle finding. No perinephric reaction or obstructive uropathy. VASCULATURE: Unremarkable. No aortic aneurysm. BOWEL: Unremarkable. No obstruction. No gross mural thickening. APPENDIX: Normal appendix. PERITONEUM: A mild amount of free intrarenal gas in the nondependent upper to mid abdomen with trace gas at the false form ligament region and also the judit hepatis. This presumably postoperative given the small volume and recent prior surgery reportedly for intussusception. Stomach is mildly as no other general contrast material and there is limited distention of a few central small bowel loops with oral contrast material and air. Distal small bowel loops appear fluid filled without collapse although the colon is collapsed essentially throughout. No definitive bowel obstruction pattern appreciable. Clinical and radiographic follow-up is were recommended nevertheless. LYMPH NODES: Unremarkable. No enlarged lymph nodes. BLADDER: Unremarkable. REPRODUCTIVE: Unremarkable. BONES: No acute fracture. OTHER FINDINGS: None. IMPRESSION: 1. Limited free intrarenal gas is likely postoperative and probably not related to hollow viscus gastrointestinal perforation. Clinically correlate nevertheless. No definite bowel obstruction at this time. Follow-up clinical and radiographic monitoring is advised 2. No definite ascites or abscess. 3. Borderline pattern of bilateral pyelonephritis as per above. Concur with V rad preliminary report 07/14/2017.
--- NOTE | 2017-07-14 13:43 | RAD ---
PROCEDURE: Radiographs of the chest and abdomen (obstructive series) HISTORY: s/p ex lap p/w epig pain and vomiting COMPARISON: Abdomen pelvis CT with contrast 07/09/2017. TECHNIQUE: AP radiograph of the chest, with upright and supine radiographs of the abdomen. FINDINGS: CHEST: Lungs: Clear. Cardiovascular: Normal size heart. No pulmonary vascular congestion. Pleura: No pleural fluid. No pneumothorax. Other findings: None. ABDOMEN AND PELVIS: Bowel: Unremarkable bowel gas pattern. No evidence of mechanical obstruction. Free air: Mild free intrarenal gas identified under both hemidiaphragms in this patient status post recent laparotomy. This may be consistent with the prior surgery a clinically correlate further. Bones: Unremarkable. Other findings: None. IMPRESSION: Mild free intrarenal gas identified under both hemidiaphragms potentially. This may be a function of recent surgery. Clinically correlate further. Examination is otherwise unremarkable.
== END 2017-07-14 02:25 | disposition home or self-care (01) ==
LOC: H.ER 20:36
DX: R10.13 Epigastric pain (principal); F17.200 Nicotine dependence, unspecified, uncomplicated; Z98.890 Other specified postprocedural states
CPT/HCPCS: 74022; 74177; 80053; 81003; 83690; 85025; 96374; 96375; 99283; C9113; J1170; J2765; J7040; Q9966

== ENCOUNTER 2017-07-15 16:05 | Inpatient (IN) | payer OTHER ==
[2017-07-15 16:05] VITALS: BMI 24.4
[2017-07-15] MEDS ORDERED: Sodium Chloride 0.9% 1,000 ML IV STA (16:47)
[2017-07-15 17:05] LABS: BASO # 0.1 K/uL (0.0-0.2); BASO % 0.7 % (0.0-2.0); EOS # 0.2 K/uL (0.0-0.7); EOS % 2.8 % (0.0-4.0); HEMATOCRIT 44.3 % (35.0-51.0); LYMPH # 1.1 K/uL (1.0-4.3); LYMPH % 13.6 % (20.0-40.0); MEAN CELL VOLUME 85.4 fl (80.0-94.0); MEAN CORPUSCULAR HEMOGLOBIN 28.4 pg (27.0-31.0); MEAN CORPUSCULAR HGB CONC 33.3 g/dL (33.0-37.0); MEAN PLATELET VOLUME 7.9 fl (7.2-11.7); MONO # 0.5 K/uL (0.0-0.8); MONO % 5.9 % (0.0-10.0); NEUT # 6.5 K/uL (1.8-7.0); RED CELL DISTRIBUTION WIDTH 13.8 % (11.5-14.5); WHITE BLOOD COUNT 8.4 K/uL (4.8-10.8)
[2017-07-15 17:18] LABS: ALB/GLOB RATIO 1.4 (1.0-2.1); ALKALINE PHOSPHATASE 44 U/L (38-126); ALT/SGPT 40 U/L (21-72); AST/SGOT 22 U/L (17-59); BILIRUBIN,TOTAL 0.8 mg/dl (0.2-1.3); BLOOD UREA NITROGEN 17 mg/dl (9-20); CALCIUM 9.6 mg/dL (8.4-10.2); CARBON DIOXIDE 25 mmol/L (22-30); CHLORIDE 101 mmol/L (98-107); GFR AFRICAN-AMERICAN > 60; GLUCOSE,RANDOM 88 mg/dL (75-110); LIPASE 93 U/L (23-300); POTASSIUM 4.2 MMOL/L (3.6-5.0); SODIUM 139 mmol/l (132-148); TOTAL PROTEIN 8.2 G/DL (6.3-8.2)
--- NOTE | 2017-07-15 18:34 | ED PDOC ---
HPI:Nausea, Vomiting, Diarrhea Time Seen by Provider: 07/15/17 16:33 Chief Complaint (Nursing): Abdominal Pain Chief Complaint (Provider): Abdominal Pain History Per: Patient History/Exam Limitations: no limitations Onset/Duration Of Symptoms: Days (x2) Current Symptoms Are (Timing): Still Present Additional Complaint(s): Chapincito Tang is a 31 year old male with previous medical history of gastritis, who presents to the emergency department with a complaint of vomiting associated with loss of appetite, dehydration and upper abdominal pain worsened in the last 2 days. Patient was unable to tolerate PO since last night. Patient reports losing weight recently. Denied any diarrhea, fever or chills. Patient stated he was seen in ED several times in the last week for similar symptoms prior and post appendectomy. Patient had explorative laparoscopy and appendectomy 6 days ago when he was admitted with similar complains and found to have intussuception. PMD: none provided Past Medical History Reviewed: Historical Data, Nursing Documentation, Vital Signs Vital Signs: Last Vital Signs Temp 99.4 F 07/15/17 16:13 Pulse 68 07/15/17 16:13 Resp 18 07/15/17 16:13 BP 124/79 07/15/17 16:13 Pulse Ox 98 07/15/17 16:13 - Medical History PMH: Arthritis, Back Problems (Spinal Arthritis), Gastritis - Surgical History Surgical History: Appendectomy - Family History Family History: States: Unknown Family Hx - Social History Current smoker - smoking cessation education provided: Yes Alcohol: None Drugs: Cannabis - Immunization History Hx Tetanus Toxoid Vaccination: No Hx Influenza Vaccination: No Hx Pneumococcal Vaccination: No - Home Medications Home Medications: Ambulatory Orders Medication Instructions Recorded Pantoprazole Sodium [Protonix] 40 mg PO DAILY #30 ect 01/13/15 Ondansetron ODT [Zofran ODT] 4 mg PO DAILY 07/09/17 Acetaminophen [Tylenol 325mg tab] 975 mg PO Q8 PRN #30 tab 07/11/17 - Allergies Allergies/Adverse Reactions: Allergies Allergy/AdvReac Type Severity Reaction Status Date / Time No Known Allergies Allergy Verified 03/23/17 16:23 Review of Systems ROS Statement: Except As Marked, All Systems Reviewed And Found Negative Constitutional: Negative for: Fever, Chills Gastrointestinal: Positive for: Vomiting, Abdominal Pain (epigastric), Other ( loss of appetite/dehydrated). Negative for: Nausea, Diarrhea Physical Exam - Reviewed Nursing Documentation Reviewed: Yes Vital Signs Reviewed: Yes - Physical Exam Appears: Positive for: Uncomfortable Head Exam: Positive for: ATRAUMATIC, NORMAL INSPECTION, NORMOCEPHALIC Skin: Positive for: Normal Color, Warm, Dry Eye Exam: Positive for: Normal appearance ENT: Positive for: Normal ENT Inspection Neck: Positive for: Normal, Painless ROM, Supple. Negative for: Decreased ROM Cardiovascular/Chest: Positive for: Regular Rate, Rhythm, Chest Non Tender Respiratory: Positive for: Normal Breath Sounds. Negative for: Decreased Breath Sounds, Respiratory Distress Gastrointestinal/Abdominal: Positive for: Soft, Tenderness (epigastric), Other ( laparoscopy scar noted: healing well). Negative for: Normal Exam Back: Positive for: Normal Inspection. Negative for: L CVA Tenderness, R CVA Tenderness Extremity: Positive for: Normal ROM. Negative for: Tenderness, Pedal Edema, Deformity Neurologic/Psych: Positive for: Alert, Oriented - Laboratory Results Result Diagrams: 07/15/17 16:55 07/15/17 16:55 - ECG O2 Sat by Pulse Oximetry: 98 (RA) Pulse Ox Interpretation: Normal Medical Decision Making Medical Decision Making: Initial Impression: Recurrent abdominal pain; cannabis-induced vomiting Differential Diagnosis: Gastritis; pancreatitis; colitis Initial Plan: * CMP * Drug screen, urine * Lipase * Urine dipstick * CBC * NS 1,000ml IV per 1,000mls/hr * Pepcid 20mg IVP * Zofran inj 4mg IVP 1830 Patient still has nausea. Unable to drink water. Pain is resolved. We will consult surgery since patient is in postop period. Discussed with surgical first assistant Dr Geiger who reports Dr Hinson is covering for Dr Greene. He will see the patient and report to Dr Hinson. Scribe Attestation: Documented by Anitra Goddard, acting as a scribe for Rod Tellez MD. Provider Scribe Attestation: All medical record entries made by the Scribe were at my direction and personally dictated by me. I have reviewed the chart and agree that the record accurately reflects my personal performance of the history, physical exam, medical decision making, and the department course for this patient. I have also personally directed, reviewed, and agree with the discharge instructions and disposition. Disposition - Clinical Impression Clinical Impression: Abdominal pain, Vomiting - Patient ED Disposition Is Patient to be Admitted: Yes Discussed With DrJoaquin: Ceferino Cota Doctor Will See Patient In The: Hospital Counseled Patient/Family Regarding: Studies Performed, Diagnosis - Disposition Disposition Time: 18:30 Condition: FAIR - Pt Status Changed To: Hospital Disposition Of: Observation - POA Present On Arrival: None
[2017-07-15] MEDS ORDERED: Sodium Chloride 0.9% 1,000 ML IV SCH ×2 (18:55)
[2017-07-15] MEDS: Pantoprazole 40 mg EC Tab PO SCH (20:04)
[2017-07-15] MEDS ORDERED: Dextrose 5%/0.45% NS 1,000 ML IV SCH (20:30)
--- NOTE | 2017-07-15 20:48 | CP.PCM.CON ---
History of Present Illness - History of Present Illness History of Present Illness: General Surgery Consult Re: Intractable emesis HPI: 31M presented to the ED C/O epigastric pain and emesis with loss of appetite and dehydration that has progressed in the last 2 days since he was in the ED. Last BM was Friday, and was loose. Denies F/C, headache, SOB, lower abd pain, pain at his midline incision. His last endoscopy was at [place] in September which he said showed gastritis and bile reflux. Negative for H pylori in past. PMH: Gastritis PSH: Ex Lap with appendectomy SH: Occasional marijuana use. All: NKDA Meds: Zofran, Protonix Review of Systems - Review of Systems All systems: reviewed and no additional remarkable complaints except (as per HPI ) Past Patient History - Infectious Disease Hx of Infectious Diseases: None - Past Medical History & Family History Past Medical History?: Yes - Past Social History Alcohol: None Drugs: Cannabis - MUSCULOSKELETAL/RHEUMATOLOGICAL Hx Arthritis: Yes - GASTROINTESTINAL Hx Gastritis: Yes - PSYCHIATRIC Hx Substance Use: Yes (Marijuana user) - SURGICAL HISTORY Hx Appendectomy: Yes - ANESTHESIA Hx Anesthesia: No Meds Allergies/Adverse Reactions: Allergies Allergy/AdvReac Type Severity Reaction Status Date / Time No Known Allergies Allergy Verified 03/23/17 16:23 - Medications Medications: Current Medications Dextrose/Sodium Chloride (Dextrose 5%/0.45% Ns 1000 Ml) 1,000 mls @ 125 mls/hr IV .Q8H [facility] Stop: 07/16/17 20:30 Metoclopramide HCl (Reglan) 10 mg IVP ONCE ONE Stop: 07/15/17 20:32 Ondansetron HCl (Zofran Inj) 4 mg IVP Q4 PRN PRN Reason: Nausea/Vomiting Pantoprazole Sodium (Protonix Ec Tab) 40 mg PO DAILY RIO Last Admin: 07/15/17 20:04 Dose: 40 mg Pantoprazole Sodium (Protonix Inj) 40 mg IVP DAILY [facility] Physical Exam - Constitutional Appears: Non-toxic, No Acute Distress - Head Exam Head Exam: ATRAUMATIC, NORMOCEPHALIC - Eye Exam Eye Exam: EOMI. absent: Scleral icterus - ENT Exam ENT Exam: Mucous Membranes Dry Additional comments: trachea midline - Neck Exam Neck exam: Positive for: Full Rom - Respiratory Exam Respiratory Exam: NORMAL BREATHING PATTERN. absent: Respiratory Distress - Cardiovascular Exam Cardiovascular Exam: RRR. absent: Bradycardia, Tachycardia - GI/Abdominal Exam GI & Abdominal Exam: Guarding, Soft, Tenderness (in epigastrum). absent: Distended, Firm, Rigid Additional comments: dressings C/D/I, no TTP around incision - Rectal Exam Rectal Exam: Deferred - Extremities Exam Extremities exam: Positive for: pedal pulses present. Negative for: calf tenderness, pedal edema - Back Exam Back exam: absent: CVA tenderness (L), CVA tenderness (R) - Neurological Exam Neurological exam: Alert, Oriented x3 - Skin Skin Exam: Dry, Warm Results - Vital Signs Recent Vital Signs: Last Vital Signs Temp 98.4 F 07/15/17 19:45 Pulse 62 07/15/17 19:45 Resp 18 07/15/17 19:45 BP 131/68 07/15/17 19:45 Pulse Ox 100 07/15/17 19:45 - Labs Result Diagrams: 07/15/17 16:55 07/15/17 16:55 Labs: Laboratory Results - last 24 hr 07/15/17 07/15/17 07/15/17 16:55 16:55 19:25 WBC 8.4 RBC 5.19 Hgb 14.8 Hct 44.3 MCV 85.4 MCH 28.4 MCHC 33.3 RDW 13.8 Plt Count 293 MPV 7.9 Neut % (Auto) 77.0 H Lymph % (Auto) 13.6 L Pitkin % (Auto) 5.9 Eos % (Auto) 2.8 Baso % (Auto) 0.7 Neut # 6.5 Lymph # 1.1 Pitkin # 0.5 Eos # 0.2 Baso # 0.1 Sodium 139 Potassium 4.2 Chloride 101 Carbon Dioxide 25 Anion Gap 18 BUN 17 Creatinine 1.0 Est GFR ( Amer) > 60 Est GFR (Non-Af Amer) > 60 Random Glucose 88 Calcium 9.6 Total Bilirubin 0.8 AST 22 ALT 40 Alkaline Phosphatase 44 Total Protein 8.2 Albumin 4.8 Globulin 3.4 Albumin/Globulin Ratio 1.4 Lipase 93 Urine Opiates Screen Negative Urine Methadone Screen Negative Ur Barbiturates Screen Negative Ur Phencyclidine Scrn Negative Ur Amphetamines Screen Negative U Benzodiazepines Scrn Negative U Oth Cocaine Metabols Negative U Cannabinoids Screen Positive H Assessment & Plan - Assessment and Plan (Free Text) Assessment: 31M with epigastric pain and intractable emesis s/p recent appendectomy Plan: IVF hydration Protonix Reglan Zofran PRN NPO Obstructive series D/W Dr. Sravan Geiger PGY4
--- NOTE | 2017-07-16 07:32 | RAD ---
PROCEDURE: Radiographs of the chest and abdomen (obstructive series) HISTORY: Abdominal pain. Relevant surgical history: Status post exploratory laparoscopy COMPARISON: 07/14/2017 TECHNIQUE: AP radiograph of the chest, with upright and supine radiographs of the abdomen. FINDINGS: CHEST: Lungs: Clear. Cardiovascular: Normal size heart. No pulmonary vascular congestion. Pleura: No pleural fluid. No pneumothorax. Other findings: None. ABDOMEN AND PELVIS: Bowel: Unremarkable bowel gas pattern. No evidence of mechanical obstruction. Free air: Free air under the diaphragms, postoperative related to recent abdominal surgical procedure. Finding confirmed on recent CT scan. Bones: Unremarkable. Other findings: None. IMPRESSION: Expected postoperative free air a finding identified on prior postoperative CT scans. Otherwise unremarkable study.
[2017-07-16] MEDS: Pantoprazole 40 mg EC Tab PO SCH ×2 (09:19→09:22)
--- NOTE | 2017-07-16 10:28 | CP.PCM.PN ---
Subjective - Date & Time of Evaluation Date of Evaluation: 07/16/17 Time of Evaluation: 10:26 - Subjective Subjective: Surgery: Dr. Hinson, covering for Dr. Greene Patient feeling better today. Denies further episodes of n/v. Mild epigastric pain. Otherwise no complaints. Objective - Vital Signs/Intake and Output Vital Signs (last 24 hours): Temp Pulse Resp BP Pulse Ox 98.4 F 65 20 110/62 97 07/16/17 08:12 07/16/17 08:12 07/16/17 08:12 07/16/17 08:12 07/16/17 08:12 - Medications Medications: Current Medications Dextrose/Sodium Chloride (Dextrose 5%-0.45% Ns 500 Ml) 1,000 mls @ 125 mls/hr IV .Q8H [facility] Stop: 07/16/17 20:30 Last Admin: 07/16/17 09:09 Dose: 125 mls/hr Ondansetron HCl (Zofran Inj) 4 mg IVP Q4 PRN PRN Reason: Nausea/Vomiting Pantoprazole Sodium (Protonix Ec Tab) 40 mg PO DAILY [facility] Last Admin: 07/16/17 09:22 Dose: 40 mg Pantoprazole Sodium (Protonix Inj) 40 mg IVP DAILY [facility] Last Admin: 07/16/17 09:20 Dose: 40 mg - Labs Labs: 07/15/17 16:55 07/15/17 16:55 - Constitutional Appears: Non-toxic, No Acute Distress - Head Exam Head Exam: ATRAUMATIC, NORMOCEPHALIC - Eye Exam Eye Exam: EOMI, Normal appearance - ENT Exam ENT Exam: Mucous Membranes Moist - Respiratory Exam Respiratory Exam: NORMAL BREATHING PATTERN. absent: Respiratory Distress - Cardiovascular Exam Cardiovascular Exam: REGULAR RHYTHM. absent: Tachycardia - GI/Abdominal Exam GI & Abdominal Exam: Soft. absent: Distended, Guarding, Tenderness, Rebound Additional comments: incisions CDI w/ steristrip dressing - Neurological Exam Neurological Exam: Alert, Awake - Psychiatric Exam Psychiatric exam: Normal Affect, Normal Mood - Skin Skin Exam: Dry, Normal Color, Warm Assessment and Plan - Assessment and Plan (Free Text) Assessment: 31 y/o male w/ chronic recurrent epigastric pain and prior ex lap, POD 7, 2/2 CT findings of intussusception Plan: -no surgical intervention at this time, ok for trial of clear liquids and ADAT if ok with GI -CT findings from 07/13 w/ no findings concerning of recurrent intussusception -f/u GI recs -recommending possible endoscopy evaluation for recurrent pain and n/v -keep incision CD, can shower. Do note bathe incision. No need for further dressing, steri strips will fall off on their own -d/w Dr. Hinson, covering for Dr. Jc Lopes PGY3
[2017-07-16 16:17] VITALS: PULSE 62
--- NOTE | 2017-07-16 16:40 | CP.PCM.HP ---
History of Present Illness - History of Present Illness History of Present Illness: 31 YO M s/p appendectomy and intermitant abdominal pain over past 5 years was admited for intractable vomiting and abdominal pain. Patient states he has been slowly advancing his diet since his last surgery seven days ago where he had a explorative laparoscopy and appendectomy 7 days ago. On friday he had a smoothy and some fruits which he felt wasn't easy to digest. Since then he had a loose bowl movement on friday and some episodes of vomiting. His last bowl movement was on friday. He came to the ER when he was not able to tolerate PO intake and was having intractable vomiting PMH: Gastritis PSH: Ex Lap with appendectomy SH: Occasional marijuana use. All: NKDA Meds: Zofran, Protonix Present on Admission - Present on Admission Any Indicators Present on Admission: No Past Patient History - Infectious Disease Hx of Infectious Diseases: None - Past Medical History & Family History Past Medical History?: Yes - Past Social History Alcohol: None Drugs: Cannabis - MUSCULOSKELETAL/RHEUMATOLOGICAL Hx Arthritis: Yes - GASTROINTESTINAL Hx Gastritis: Yes - PSYCHIATRIC Hx Substance Use: Yes (Marijuana user) - SURGICAL HISTORY Hx Appendectomy: Yes - ANESTHESIA Hx Anesthesia: No Meds Allergies/Adverse Reactions: Allergies Allergy/AdvReac Type Severity Reaction Status Date / Time No Known Allergies Allergy Verified 03/23/17 16:23 Physical Exam - Constitutional Appears: No Acute Distress - Head Exam Head Exam: NORMAL INSPECTION - Respiratory Exam Respiratory Exam: Clear to Auscultation Bilateral, NORMAL BREATHING PATTERN. absent: Wheezes - Cardiovascular Exam Cardiovascular Exam: REGULAR RHYTHM, +S1, +S2 - GI/Abdominal Exam GI & Abdominal Exam: Soft Additional comments: Dressing appears C/D/I on midline of abdomen - Extremities Exam Extremities exam: Negative for: calf tenderness Results - Vital Signs Recent Vital Signs: Last Vital Signs Temp 98.6 F 07/16/17 16:16 Pulse 62 07/16/17 16:16 Resp 18 07/16/17 16:16 BP 119/68 07/16/17 16:16 Pulse Ox 99 07/16/17 16:16 - Labs Result Diagrams: 07/15/17 16:55 07/15/17 16:55 Labs: Laboratory Results - last 24 hr 07/15/17 07/15/17 07/15/17 16:55 16:55 19:25 WBC 8.4 RBC 5.19 Hgb 14.8 Hct 44.3 MCV 85.4 MCH 28.4 MCHC 33.3 RDW 13.8 Plt Count 293 MPV 7.9 Neut % (Auto) 77.0 H Lymph % (Auto) 13.6 L [place] % (Auto) 5.9 Eos % (Auto) 2.8 Baso % (Auto) 0.7 Neut # 6.5 Lymph # 1.1 [place] # 0.5 Eos # 0.2 Baso # 0.1 Sodium 139 Potassium 4.2 Chloride 101 Carbon Dioxide 25 Anion Gap 18 BUN 17 Creatinine 1.0 Est GFR ( Amer) > 60 Est GFR (Non-Af Amer) > 60 Random Glucose 88 Calcium 9.6 Total Bilirubin 0.8 AST 22 ALT 40 Alkaline Phosphatase 44 Total Protein 8.2 Albumin 4.8 Globulin 3.4 Albumin/Globulin Ratio 1.4 Lipase 93 Urine Opiates Screen Negative Urine Methadone Screen Negative Ur Barbiturates Screen Negative Ur Phencyclidine Scrn Negative Ur Amphetamines Screen Negative U Benzodiazepines Scrn Negative U Oth Cocaine Metabols Negative U Cannabinoids Screen Positive H Assessment & Plan - Assessment and Plan (Free Text) Assessment: 1) Epigastric craig and vomiting - Clear liquids as of now - Surgery and GI has been consulted - Possible obstructive series. To see root cause - Regalan 2) DVT prophylaxis - SCD - Encouraged ambulation - Hold lovenox in case surgical intervention is needed.
[2017-07-17 07:19] VITALS: BP 118/67; RESP 18; TEMP 98.5; O2SAT 99
--- NOTE | 2017-07-17 08:16 | CP.PCM.PN ---
Subjective - Date & Time of Evaluation Date of Evaluation: 07/17/17 Time of Evaluation: 06:50 - Subjective Subjective: Patient seen and examined this morning. No acute events over night. No complaints. Tolerating diet. Objective - Vital Signs/Intake and Output Vital Signs (last 24 hours): Temp Pulse Resp BP Pulse Ox 98.5 F 62 18 118/67 99 07/17/17 07:19 07/17/17 07:19 07/17/17 07:19 07/17/17 07:19 07/17/17 07:19 - Medications Medications: Current Medications Ondansetron HCl (Zofran Inj) 4 mg IVP Q4 PRN PRN Reason: Nausea/Vomiting Pantoprazole Sodium (Protonix Inj) 40 mg IVP DAILY RIO Last Admin: 07/16/17 09:20 Dose: 40 mg Tramadol HCl (Ultram) 50 mg PO Q6 PRN PRN Reason: Pain, moderate (4-7) Last Admin: 07/16/17 23:24 Dose: 50 mg - Labs Labs: 07/15/17 16:55 07/15/17 16:55 - Constitutional Appears: No Acute Distress - Head Exam Head Exam: NORMOCEPHALIC - Eye Exam Eye Exam: Normal appearance - ENT Exam ENT Exam: Mucous Membranes Moist - Respiratory Exam Respiratory Exam: NORMAL BREATHING PATTERN - Cardiovascular Exam Cardiovascular Exam: +S1, +S2 - GI/Abdominal Exam GI & Abdominal Exam: Soft - Neurological Exam Neurological Exam: Alert, Awake, Oriented x3 - Psychiatric Exam Psychiatric exam: Normal Mood - Skin Skin Exam: Dry, Intact, Warm Assessment and Plan - Assessment and Plan (Free Text) Assessment: 31M w/ chronic recurrent epigastric pain and prior ex lap 2/2 CT findings of intussusception POD8 -clear for discharge from surgical standpoint -f/u GI recs -Follow up with Dr. Greene in office -d/w Dr. Hinson, covering for Dr. Jc Garcia PGY2
[2017-07-17] MEDS ORDERED: Enoxaparin 40 mg Syringe SC SCH (09:00)
--- NOTE | 2017-07-17 09:43 | CP.PCM.DIS ---
Provider - Provider Date of Admission: 07/16/17 16:30 Attending physician: Ceferino Cota MD Hospital Course - Lab Results Lab Results: Most Recent Lab Values WBC 8.4 K/uL (4.8-10.8) 07/15/17 16:55 RBC 5.19 Mil/uL (4.40-5.90) 07/15/17 16:55 Hgb 14.8 g/dL (12.0-18.0) 07/15/17 16:55 Hct 44.3 % (35.0-51.0) 07/15/17 16:55 MCV 85.4 fl (80.0-94.0) 07/15/17 16:55 MCH 28.4 pg (27.0-31.0) 07/15/17 16:55 MCHC 33.3 g/dL (33.0-37.0) 07/15/17 16:55 RDW 13.8 % (11.5-14.5) 07/15/17 16:55 Plt Count 293 K/uL (130-400) 07/15/17 16:55 MPV 7.9 fl (7.2-11.7) 07/15/17 16:55 Neut % (Auto) 77.0 % (50.0-75.0) H 07/15/17 16:55 Lymph % (Auto) 13.6 % (20.0-40.0) L 07/15/17 16:55 [place] % (Auto) 5.9 % (0.0-10.0) 07/15/17 16:55 Eos % (Auto) 2.8 % (0.0-4.0) 07/15/17 16:55 Baso % (Auto) 0.7 % (0.0-2.0) 07/15/17 16:55 Neut # 6.5 K/uL (1.8-7.0) 07/15/17 16:55 Lymph # 1.1 K/uL (1.0-4.3) 07/15/17 16:55 [place] # 0.5 K/uL (0.0-0.8) 07/15/17 16:55 Eos # 0.2 K/uL (0.0-0.7) 07/15/17 16:55 Baso # 0.1 K/uL (0.0-0.2) 07/15/17 16:55 Sodium 139 mmol/l (132-148) 07/15/17 16:55 Potassium 4.2 MMOL/L (3.6-5.0) 07/15/17 16:55 Chloride 101 mmol/L (98-107) 07/15/17 16:55 Carbon Dioxide 25 mmol/L (22-30) 07/15/17 16:55 Anion Gap 18 (10-20) 07/15/17 16:55 BUN 17 mg/dl (9-20) 07/15/17 16:55 Creatinine 1.0 mg/dL (0.8-1.5) 07/15/17 16:55 Est GFR ( Amer) > 60 07/15/17 16:55 Est GFR (Non-Af Amer) > 60 07/15/17 16:55 Random Glucose 88 mg/dL (75-110) 07/15/17 16:55 Calcium 9.6 mg/dL (8.4-10.2) 07/15/17 16:55 Total Bilirubin 0.8 mg/dl (0.2-1.3) 07/15/17 16:55 AST 22 U/L (17-59) 07/15/17 16:55 ALT 40 U/L (21-72) 07/15/17 16:55 Alkaline Phosphatase 44 U/L (38-126) 07/15/17 16:55 Total Protein 8.2 G/DL (6.3-8.2) 07/15/17 16:55 Albumin 4.8 g/dL (3.5-5.0) 07/15/17 16:55 Globulin 3.4 gm/dL (2.2-3.9) 07/15/17 16:55 Albumin/Globulin Ratio 1.4 (1.0-2.1) 07/15/17 16:55 Lipase 93 U/L (23-300) 07/15/17 16:55 Urine Opiates Screen Negative (NEGATIVE) 07/15/17 19:25 Urine Methadone Screen Negative (NEGATIVE) 07/15/17 19:25 Ur Barbiturates Screen Negative (NEGATIVE) 07/15/17 19:25 Ur Phencyclidine Scrn Negative (NEGATIVE) 07/15/17 19:25 Ur Amphetamines Screen Negative (NEGATIVE) 07/15/17 19:25 U Benzodiazepines Scrn Negative (NEGATIVE) 07/15/17 19:25 U Oth Cocaine Metabols Negative (NEGATIVE) 07/15/17 19:25 U Cannabinoids Screen Positive (NEGATIVE) H 07/15/17 19:25 - Hospital Course Hospital Course: This is a 31 y/o male admitted for epigastric pain and vomiting for the past few days. he had the same episodes in the past and last week he was noted to have intussuception, had surgery and ended up with appendectomy. Discharge Exam - Head Exam Head Exam: NORMOCEPHALIC Discharge Plan - Follow Up Plan Condition: FAIR Disposition: HOME/ ROUTINE
--- NOTE | 2017-07-17 20:37 | CON ---
DATE: 07/16/2017 REFERRING PHYSICIAN: Ceferino Cota MD. REASON FOR CONSULTATION: Abdominal pain. HISTORY OF PRESENT ILLNESS: This is a 31-year-old male with a history of an appendectomy, has been having abdominal pain for the past 5 years or so. He has had multiple GI workups including endoscopy with CAT scan, and the patient at some point had undergone an exploratory laparotomy. Last week, he had some discomfort with diarrhea, although it has gotten better. He had some occasional reflux. He has tolerated liquids last night and otherwise lying in bed, comfortable, in no apparent distress. PAST MEDICAL HISTORY: As above. PAST SURGICAL HISTORY: As above. MEDICATIONS: Have been reviewed. REVIEW OF SYSTEMS: All other systems have been reviewed and negative apart from the HPI. PHYSICAL EXAMINATION GENERAL: A pleasant, young man, lying in bed comfortably, in no apparent distress. VITAL SIGNS: Here in the hospital, grossly unremarkable. HEENT: Head is normocephalic atraumatic. Eyes, pupils are equal, round, and reactive to light bilaterally. No conjunctival pallor or icterus. NECK: Supple. Normal range of motion. No lymphadenopathy appreciated. LUNGS: Coarse breath sounds bilaterally. HEART: S1 and S2. Regular rate and rhythm. No murmurs appreciated. ABDOMEN: Soft, nontender, bowel sounds present. No rebound. No guarding. RECTAL: Deferred. EXTREMITIES: Pulses felt bilaterally. SKIN: Warm, dry, and intact. NEUROLOGIC: A and O x3. LABORATORY DATA: Labs reviewed. WBC is 8.4, hemoglobin of 14.8, hematocrit is 44.3. LFTs are otherwise normal. Cannabinoids are positive on the U-tox. X-rays of the abdomen postoperatively was unremarkable. ASSESSMENT AND PLAN: This is a 31-year-old male with abdominal pain of unknown etiology. From a gastroenterology standpoint, I will advance diet as tolerated and discharge home as can. At some point, I would recommend getting upper gastrointestinal series with small bowel follow-through as well as possible capsule endoscopy and/or push enteroscopy. For now, conservative management with surgical followup is recommended. We will follow the patient with you. Thank you for the consult. Carlos Alberto Langford MD/ PhD cc: Ceferino Cota MD
== END 2017-07-17 11:35 | disposition home or self-care (01) | DRG 392 ==
LOC: H.ER 16:05 → H.ERHOLD 18:49 → H.MEDSURG1 20:42 → OBSVTOIN 07-16 16:30
PROVIDERS: ADMIT Family Medicine; ATTEND Family Medicine
DX: R10.13 Epigastric pain (principal); E86.0 Dehydration; F12.90 Cannabis use, unspecified, uncomplicated; K29.70 Gastritis, unspecified, without bleeding; M19.90 Unspecified osteoarthritis, unspecified site; M47.9 Spondylosis, unspecified

== ENCOUNTER 2017-09-29 17:36 | Emergency (ER) | payer OTHER ==
[2017-09-29 17:37] VITALS: BMI 24.4
[2017-09-29 17:41] VITALS: TEMP 97.9
[2017-09-29] MEDS ORDERED: Sodium Chloride 0.9% 1,000 ML IV STA (18:27)
[2017-09-29] MEDS ORDERED: DiphenhydrAMINE 50 mg/ml Inj IVP STA (18:27)
[2017-09-29] MEDS ORDERED: DiphenhydrAMINE 50 mg/ml Inj ONE (18:40)
--- NOTE | 2017-09-29 19:00 | ED PDOC ---
HPI: Abdomen Time Seen by Provider: 09/29/17 18:18 Chief Complaint (Nursing): Abdominal Pain Chief Complaint (Provider): Abdominal Pain and vomiting History Per: Patient History/Exam Limitations: no limitations Onset/Duration Of Symptoms: Hrs (x8) Current Symptoms Are (Timing): Still Present Location Of Pain/Discomfort: Epigastric Quality Of Discomfort: "Pain" Associated Symptoms: Nausea, Vomiting (non bilious, non bloody). denies: Diarrhea (no bloody or black stool) Additional Complaint(s): Chapincito Tang is a 31 year old male, with a past medical history of spinal arthritis and gastritis, who presents to the emergency department complaining of epigastric abdominal pain associated with vomiting onset since 11 o'clock today. He reports he was hungry and waiting for food to arrive when he started feeling nauseous and the pain began. Patient reports intractable non bilious non bloody vomit, last episode was x10 min NEGATIVE RETOUCHER. Patient states symptoms are similar to previous episodes that he has had in the past year. He has undergone exploratory laparotomy when intussusception, ended up having an appendectomy. He used to follow up with GI but has not since surgery. He denies any diarrhea, no black or bloody stool. No further medical complaints. PMD: None provided. Past Medical History Reviewed: Historical Data, Nursing Documentation, Vital Signs Vital Signs: Last Vital Signs Temp 97.9 F 09/29/17 17:39 Pulse 69 09/29/17 23:41 Resp 18 09/29/17 23:41 BP 122/63 09/29/17 23:41 Pulse Ox 99 09/29/17 23:41 - Medical History PMH: Arthritis, Back Problems (Spinal Arthritis), Gastritis - Surgical History Surgical History: Appendectomy - Family History Family History: States: Unknown Family Hx - Social History Current smoker - smoking cessation education provided: No Alcohol: None Drugs: Cannabis - Immunization History Hx Tetanus Toxoid Vaccination: No Hx Influenza Vaccination: No Hx Pneumococcal Vaccination: No - Home Medications Home Medications: Ambulatory Orders Medication Instructions Recorded Acetaminophen [Tylenol 325mg tab] 975 mg PO Q8 PRN #30 tab 07/11/17 Dexlansoprazole [Dexilant] 60 mg PO DAILY #30 bp 07/17/17 Metoclopramide [Reglan] 5 mg PO DAILY #90 tab 07/17/17 Dicyclomine [Bentyl] 20 mg PO BID PRN #30 tab 09/29/17 Ondansetron ODT [Zofran ODT] 1 odt PO Q6 PRN #20 odt 09/29/17 - Allergies Allergies/Adverse Reactions: Allergies Allergy/AdvReac Type Severity Reaction Status Date / Time No Known Allergies Allergy Verified 03/23/17 16:23 Review of Systems ROS Statement: Except As Marked, All Systems Reviewed And Found Negative Gastrointestinal: Positive for: Nausea, Vomiting (non bilious non bloody), Abdominal Pain (epigastric). Negative for: Diarrhea Physical Exam - Reviewed Nursing Documentation Reviewed: Yes Vital Signs Reviewed: Yes - Physical Exam Appears: Positive for: Non-toxic, In Acute Distress Head Exam: Positive for: ATRAUMATIC, NORMOCEPHALIC Skin: Positive for: Warm, Dry Eye Exam: Positive for: EOMI, PERRL ENT: Positive for: Pharynx Is (clear with dry mucus membranes). Negative for: Pharyngeal Erythema, Tonsillar Exudate Neck: Positive for: Painless ROM, Supple Cardiovascular/Chest: Positive for: Regular Rate, Rhythm, Chest Non Tender. Negative for: Murmur Respiratory: Positive for: Normal Breath Sounds. Negative for: Wheezing, Respiratory Distress Gastrointestinal/Abdominal: Positive for: Soft, Tenderness (diffuse hyperesthetic abdomen). Negative for: Mass, Distended, Guarding, Rebound Back: Positive for: Normal Inspection. Negative for: Muscle Spasm Extremity: Positive for: Normal ROM. Negative for: Deformity Lymphatic: Negative for: Adenopathy Neurologic/Psych: Positive for: Alert. Negative for: Motor/Sensory Deficits - Laboratory Results Result Diagrams: 09/29/17 19:14 09/29/17 19:14 - ECG O2 Sat by Pulse Oximetry: 100 (RA) Pulse Ox Interpretation: Normal Medical Decision Making Medical Decision Making: Initial Impression: intractable vomiting in abdominal pain Initial Plan: --Comp Metabolic Panel --Lipase --Magnesium --Phosphorus --Urine dipstick --CBC w/ differential --Dextrose 1,000 ml IV 100 mls/hr --Benadryl 25 mg IVP --Toradol 15 mg IVP --Sodium Chloride 1,000 ml IV 1,000 mls/hr --Protonix Inj 40 mg IVP --Phenergan Inj 25 mg IVPB --reevaluation Labs unremarkable At 1930 pt's symptoms recurred. IV Pepcid and IV Zofran ordered. IVF continued. 11p Pt reports no longer nauseous and pain resolved, but would rather wait until morn to try to eat. Advised to rest for the rest of the evening, and continue oral hydration. Scribe Attestation: Documented by Tyrese Kenyon, acting as a scribe for Dannielle Miguel MD Provider Scribe Attestation: All medical record entries made by the Scribe were at my direction and personally dictated by me. I have reviewed the chart and agree that the record accurately reflects my personal performance of the history, physical exam, medical decision making, and the department course for this patient. I have also personally directed, reviewed, and agree with the discharge instructions and disposition. Disposition - Clinical Impression Clinical Impression: Vomiting, Gastritis - Disposition Referrals: Addy Santiago MD [Staff Provider] - (CALL TOMORROW TO SETUP FOLLOW UP APPOINTMENT BY THE END OF THE WEEK) [facility] [Outside] Disposition Time: 23:04 Condition: IMPROVED Additional Instructions: BLAND DIET WITH PLENTY OF HYDRATING FLUIDS REST RETURN TO ER FOR WORSENING SYMPTOMS Prescriptions: Dicyclomine [Bentyl] 20 mg PO BID PRN #30 tab PRN Reason: abdominal pain Ondansetron ODT [Zofran ODT] 1 odt PO Q6 PRN #20 odt PRN Reason: Nausea/Vomiting Instructions: Acute Nausea and Vomiting (ED), Abdominal Pain (ED) Forms: [facility] ED School/Work Excuse
[2017-09-29 19:18] LABS: BASO % 0.2 % (0.0-2.0); LYMPH # 0.5 K/uL (1.0-4.3); LYMPH % 6.6 % (20.0-40.0); MEAN CORPUSCULAR HEMOGLOBIN 28.3 pg (27.0-31.0); MEAN CORPUSCULAR HGB CONC 32.6 g/dL (33.0-37.0); MEAN PLATELET VOLUME 8.6 fl (7.2-11.7); MONO # 0.2 K/uL (0.0-0.8); MONO % 2.2 % (0.0-10.0); NEUT # 7.1 K/uL (1.8-7.0); PLATELET COUNT 242 K/uL (130-400); RBC 5.28 Mil/uL (4.40-5.90); RED CELL DISTRIBUTION WIDTH 13.8 % (11.5-14.5); WHITE BLOOD COUNT 7.9 K/uL (4.8-10.8)
[2017-09-29 19:34] LABS: CALCIUM 10.6 mg/dL (8.4-10.2); GFR AFRICAN-AMERICAN > 60; GFR NON-AFRICAN AMERICAN > 60; LIPASE 52 U/L (23-300)
[2017-09-29 19:38] LABS: ALB/GLOB RATIO 1.4 (1.0-2.1); ALBUMIN 5.2 g/dL (3.5-5.0); ALT/SGPT 61 U/L (21-72); AST/SGOT 44 U/L (17-59); BLOOD UREA NITROGEN 24 mg/dl (9-20); MAGNESIUM 1.9 MG/DL (1.6-2.3)
[2017-09-29] MEDS ORDERED: Alum-Mag Hydrox-Simethicone Susp (30 mL) PO STA (21:41)
[2017-09-29 21:46] LABS: BANDS 1 % (0-2); LYMPHOCYTE 6 % (20-50); MONOCYTE 3 % (0-10); NEUTROPHIL 90 % (42-75); PLATELET ESTIMATE NORMAL (NORMAL); TOTAL CELLS COUNTED 100
[2017-09-29 21:48] LABS: HYPOCHROMIC SLIGHT; LARGE PLATELETS PRESENT
[2017-09-29] MEDS ORDERED: Alum-Mag Hydrox-Simethicone Susp (30 mL) ONE (21:58)
[2017-09-29 23:41] VITALS: BP 122/63; PULSE 69; RESP 18
[2017-09-29 23:50] VITALS: O2SAT 100
== END 2017-09-29 23:42 | disposition home or self-care (01) ==
LOC: H.ER 17:36
DX: K29.70 Gastritis, unspecified, without bleeding (principal); R11.10 Vomiting, unspecified
CPT/HCPCS: 80053; 83690; 83735; 84100; 85025; 96374; 96375; 99284; C9113; J1200; J1885; J2405; J2550; J7040; J7042

== ENCOUNTER 2018-01-21 12:33 | Emergency (ER) | payer OTHER ==
[2018-01-21 12:33] VITALS: BMI 24.4
[2018-01-21 13:00] VITALS: PULSE 60; RESP 16; TEMP 96.3; O2SAT 100
[2018-01-21] MEDS ORDERED: Sodium Chloride 0.9% 1,000 ML IV STA (13:40)
[2018-01-21] MEDS ORDERED: Iohexol 240 (50 ml) PO ONE (13:40)
--- NOTE | 2018-01-21 13:43 | ED PDOC ---
HPI: Abdomen Time Seen by Provider: 01/21/18 13:32 Chief Complaint (Nursing): Abdominal Pain Chief Complaint (Provider): Abdominal Pain History Per: Patient History/Exam Limitations: no limitations Onset/Duration Of Symptoms: Days (x1) Current Symptoms Are (Timing): Still Present Additional Complaint(s): 32 y/o male with a pmhx of arthritis, who presents to the ED for evaluation of abdominal pain x1 day. Patient states he woke up this morning with some abdominal discomfort after being asymptomatic yesterday. He says he tried to eat a smoothie, but was unable to tolerate PO. Patient confirms nausea, vomiting , and diarrhea. Denies chest pain, shortness of breath, constipation, hematemesis, hematochezia, and changes to diet. Patient was seen here at this facility on 07/09/2017 and underwent an exploratory laparotomy for intussusception and incidental appendectomy. The procedure was performed by Dr. Greene. PMD: None Surgeon: Dr. Grey Greene Past Medical History Reviewed: Historical Data, Nursing Documentation, Vital Signs Vital Signs: Last Vital Signs Temp 96.3 F L 01/21/18 12:56 Pulse 60 01/21/18 12:56 Resp 16 01/21/18 12:56 BP 103/60 01/21/18 12:56 Pulse Ox 100 01/21/18 14:44 - Medical History PMH: Arthritis, Back Problems (Spinal Arthritis), Gastritis Other PMH: intussception - Surgical History Surgical History: Appendectomy - Family History Family History: States: Unknown Family Hx - Social History Current smoker - smoking cessation education provided: No Alcohol: None Drugs: Denies - Immunization History Hx Tetanus Toxoid Vaccination: No Hx Influenza Vaccination: No Hx Pneumococcal Vaccination: No - Home Medications Home Medications: Ambulatory Orders Medication Instructions Recorded Acetaminophen [Tylenol 325mg tab] 975 mg PO Q8 PRN #30 tab 07/11/17 Dexlansoprazole [Dexilant] 60 mg PO DAILY #30 bp 07/17/17 Metoclopramide [Reglan] 5 mg PO DAILY #90 tab 07/17/17 Dicyclomine [Bentyl] 20 mg PO BID PRN #30 tab 09/29/17 Ondansetron ODT [Zofran ODT] 1 odt PO Q6 PRN #20 odt 09/29/17 - Allergies Allergies/Adverse Reactions: Allergies Allergy/AdvReac Type Severity Reaction Status Date / Time No Known Allergies Allergy Verified 01/21/18 12:56 Review of Systems ROS Statement: Except As Marked, All Systems Reviewed And Found Negative Constitutional: Negative for: Fever Cardiovascular: Negative for: Chest Pain Respiratory: Negative for: Shortness of Breath Gastrointestinal: Positive for: Nausea, Vomiting, Abdominal Pain, Diarrhea. Negative for: Constipation, Hematochezia, Hematemesis Physical Exam - Reviewed Nursing Documentation Reviewed: Yes Vital Signs Reviewed: Yes - Physical Exam Appears: Positive for: Non-toxic, No Acute Distress Head Exam: Positive for: ATRAUMATIC, NORMAL INSPECTION, NORMOCEPHALIC Skin: Positive for: Normal Color, Warm, Dry. Negative for: Rash Eye Exam: Positive for: EOMI, Normal appearance, PERRL Neck: Positive for: Normal, Painless ROM, Supple Cardiovascular/Chest: Positive for: Regular Rate, Rhythm. Negative for: Murmur Respiratory: Positive for: Normal Breath Sounds. Negative for: Respiratory Distress Gastrointestinal/Abdominal: Positive for: Soft, Tenderness (epigastric) Back: Positive for: Normal Inspection. Negative for: L CVA Tenderness, R CVA Tenderness, Vertebral Tenderness Extremity: Positive for: Normal ROM. Negative for: Pedal Edema, Deformity Neurologic/Psych: Positive for: Alert, Oriented - Laboratory Results Result Diagrams: 01/21/18 14:08 01/21/18 14:00 Interpretation Of Abn Labs: 27 bun - ECG O2 Sat by Pulse Oximetry: 100 (RA) Pulse Ox Interpretation: Normal - Progress ED Course And Treament: 1659: Dr. Amato to take over care. Fu on ct. Medical Decision Making Medical Decision Makin:40 Initial Impression: Abdominal pain Plan: --CT abdomen and pelvis w/ IV contrast --CMP --Lipase --Udip --CBC --Morphine 4mg IV --Sodium Chloride 0.9% 1,000mls/hr --Iohexol 50ml PO --Pepcid 20mg IVP --Zofran 4mg PO --Reevaluation Scribe Attestation: Documented by Jimbo Alcaraz, acting as a scribe for Michael Partida MD. Provider Scribe Attestation: All medical record entries made by the Scribe were at my direction and personally dictated by me. I have reviewed the chart and agree that the record accurately reflects my personal performance of the history, physical exam, medical decision making, and the department course for this patient. I have also personally directed, reviewed, and agree with the discharge instructions and disposition. Disposition - Clinical Impression Clinical Impression: Abdominal discomfort - Patient ED Disposition Is Patient to be Admitted: Transfer of Care - Disposition Disposition Time: 16:55 Condition: FAIR Patient Signed Over To: Brittany Amato
[2018-01-21] MEDS ORDERED: Iohexol 240 (50 ml) ONE (14:02)
[2018-01-21] MEDS ORDERED: Iohexol 300 100 ML IJ ONE ×2 (14:34→16:34)
[2018-01-21] MEDS ORDERED: Sodium Chloride 0.9% 0 ML ONE (14:34)
[2018-01-21 14:49] LABS: BASO % 0.3 % (0.0-2.0); HEMOGLOBIN 15.4 g/dL (12.0-18.0); LYMPH # 0.5 K/uL (1.0-4.3); LYMPH % 6.5 % (20.0-40.0); MEAN CELL VOLUME 87.1 fl (80.0-94.0); MEAN CORPUSCULAR HGB CONC 33.3 g/dL (33.0-37.0); MEAN PLATELET VOLUME 8.3 fl (7.2-11.7); MONO # 0.2 K/uL (0.0-0.8); MONO % 2.9 % (0.0-10.0); NEUT # 7.1 K/uL (1.8-7.0); NEUT % 90.3 % (50.0-75.0); PLATELET COUNT 302 K/uL (130-400); RBC 5.32 Mil/uL (4.40-5.90); RED CELL DISTRIBUTION WIDTH 13.8 % (11.5-14.5); WHITE BLOOD COUNT 7.9 K/uL (4.8-10.8)
[2018-01-21 15:02] LABS: ALB/GLOB RATIO 1.2 (1.0-2.1); ALBUMIN 4.7 g/dL (3.5-5.0); ALT/SGPT 47 U/L (21-72); AST/SGOT 31 U/L (17-59); BLOOD UREA NITROGEN 27 mg/dl (9-20); CALCIUM 10.4 mg/dL (8.4-10.2); GFR AFRICAN-AMERICAN > 60; GFR NON-AFRICAN AMERICAN > 60; LIPASE 48 U/L (23-300)
[2018-01-21 15:34] LABS: LYMPHOCYTE 7 % (20-50); MONOCYTE 3 % (0-10); NEUTROPHIL 90 % (42-75); PLATELET ESTIMATE NORMAL (NORMAL); TOTAL CELLS COUNTED 100
[2018-01-21] MEDS ORDERED: Sodium Chloride 0.9% 100 ML ONE (16:34)
--- NOTE | 2018-01-21 17:36 | ED PDOC ---
- Laboratory Results Result Diagrams: 01/21/18 14:08 01/21/18 14:00 - ECG O2 Sat by Pulse Oximetry: 100 (RA) Medical Decision Making Medical Decision Makin:00 Patient endorsed to me from Dr. Partida. Pending CT scan. 17:30 CT Abd/Pelvis FINDINGS: LOWER THORAX: Heart size within range of normal. Lung bases are clear. No infiltrate effusion or basilar pneumothorax. There is a small hiatal hernia. The in LIVER: Liver exhibits relatively normal size nearly 18 cm in CC dimension. . Mild fatty hepatic infiltration. The No masses collections or calcifications. Portal and splenic veins are opacified. GALLBLADDER AND BILE DUCTS: Gallbladder physiologically distended. No evidence of intraluminal gallbladder calculi. . PANCREAS: Pancreas appears unremarkable without masses collections or calcifications. SPLEEN: Unremarkable. No splenomegaly. ADRENALS: Unremarkable. KIDNEYS AND URETERS: Kidneys demonstrate symmetric nephrograms. No evidence of nephrolithiasis or hydronephrosis. BLADDER: The urinary bladder is incompletely distended which made cough for slight thick- walled appearance. Muscular hypertrophy may contribute. . REPRODUCTIVE: Unremarkable. APPENDIX: The the appendix is not seen with certainty with tiny densities along the posterior margin of the base of the cecum likely representing sequela of prior appendectomy. BOWEL: Evaluation of the bowel is somewhat limited due to incomplete opacification. Stomach is distended with oral contrast material and air. . There are a few mildly distended contrast and air-filled loops of proximal small bowel. . No evidence of intussusception. Remaining small bowel exhibits normal contour and caliber. No evidence of acute mechanical small bowel obstruction. The colon is not opacified limiting evaluation. Colon appears relatively collapsed. No definitive evidence of abnormal mural wall thickening. PERITONEUM: Previously noted free intraperitoneal air resolved. . LYMPH NODES: Unremarkable. No enlarged lymph nodes. VASCULATURE: No evidence of abdominal aortic or iliac artery areas of areolar BONES: No fracture or destructive lesion. OTHER FINDINGS: None. IMPRESSION: Mild fatty hepatic infiltration. Status post appendectomy There is mild localized dilatation of the proximal jejunum with no evidence of obvious intussusception at this time. 18:39 Patient tolerated PO. when i walked into the room to reeval pt, he appeared totally comfortable and resting in no distress. gave him results of the CT. Patient is medically stable for discharge and was advised to follow up with outpatient health clinic. Scribe Attestation: Documented by Blaise Llanos acting as a scribe for Brittany Amato MD. Provider Scribe Attestation: All medical record entries made by the Scribe were at my direction and personally dictated by me. I have reviewed the chart and agree that the record accurately reflects my personal performance of the history, physical exam, medical decision making, and the department course for this patient. I have also personally directed, reviewed, and agree with the discharge instructions and disposition. Disposition Counseled Patient/Family Regarding: Studies Performed, Diagnosis, Need For Followup - Clinical Impression Clinical Impression: Abdominal discomfort - POA Present On Arrival: None - Disposition Referrals: [facility] [Outside] [facility] [Outside] Disposition: Routine/Home Disposition Time: 18:35 Condition: IMPROVED Additional Instructions: follow up with your primary doctor in 1-2 days return to the ED with any worsening or concerning symptoms Instructions: Acute Abdomen (Belly Pain), Adult (DC) Forms: [employer] (Bengali), [facility] ED School/Work Excuse
[2018-01-21 17:41] VITALS: BP 124/68
--- NOTE | 2018-01-21 17:50 | CT ---
PROCEDURE: CT abdomen pelvis 01/21/2018 HISTORY: Abdominal pain COMPARISON: Comparison made with prior CT scan 07/14/2017. TECHNIQUE: Contiguous helical/ transaxial sections of the abdomen pelvis performed following oral and intravenous injection of approximately 95 cc Omnipaque 300 contrast material. Additional 2D sagittal and coronal reformats generated. Radiation dose: Total exam DLP = This CT exam was performed using one or more of the following dose reduction techniques: Automated exposure control, adjustment of the mA and/or kV according to patient size, and/or use of iterative reconstruction abdomen and pelvis dated technique. FINDINGS: LOWER THORAX: Heart size within range of normal. Lung bases are clear. No infiltrate effusion or basilar pneumothorax. There is a small hiatal hernia. The in LIVER: Liver exhibits relatively normal size nearly 18 cm in CC dimension. . Mild fatty hepatic infiltration. The No masses collections or calcifications. Portal and splenic veins are opacified. GALLBLADDER AND BILE DUCTS: Gallbladder physiologically distended. No evidence of intraluminal gallbladder calculi. . PANCREAS: Pancreas appears unremarkable without masses collections or calcifications. SPLEEN: Unremarkable. No splenomegaly. ADRENALS: Unremarkable. KIDNEYS AND URETERS: Kidneys demonstrate symmetric nephrograms. No evidence of nephrolithiasis or hydronephrosis. BLADDER: The urinary bladder is incompletely distended which made cough for slight thick-walled appearance. Muscular hypertrophy may contribute. . REPRODUCTIVE: Unremarkable. APPENDIX: The the appendix is not seen with certainty with tiny densities along the posterior margin of the base of the cecum likely representing sequela of prior appendectomy. BOWEL: Evaluation of the bowel is somewhat limited due to incomplete opacification. Stomach is distended with oral contrast material and air. . There are a few mildly distended contrast and air-filled loops of proximal small bowel. . No evidence of intussusception. Remaining small bowel exhibits normal contour and caliber. No evidence of acute mechanical small bowel obstruction. The colon is not opacified limiting evaluation. Colon appears relatively collapsed. No definitive evidence of abnormal mural wall thickening. PERITONEUM: Previously noted free intraperitoneal air resolved. . LYMPH NODES: Unremarkable. No enlarged lymph nodes. VASCULATURE: No evidence of abdominal aortic or iliac artery areas of areolar BONES: No fracture or destructive lesion. OTHER FINDINGS: None. IMPRESSION: Mild fatty hepatic infiltration. Status post appendectomy There is mild localized dilatation of the proximal jejunum with no evidence of obvious intussusception at this time.
== END 2018-01-21 19:21 | disposition home or self-care (01) ==
LOC: H.ER 12:33
DX: R10.9 Unspecified abdominal pain (principal)
CPT/HCPCS: 74177; 80053; 83690; 85025; 96374; 96375; 96376; 99283; J2270; J7040; Q9966; Q9967